=== PATIENT | male | born 1950 | race Caucasian/White ===

== ENCOUNTER 2018-04-02 17:22 | Emergency (ER) | payer OTHER, MEDICARE ==
[2018-04-02 18:39] LABS: PLATELET COUNT 275 10^3/uL (150-400)
--- NOTE | 2018-04-02 19:15 | EDPHY ---
H & P Stated Complaint: Gen abd pain "moves around" w/ extra flatulence worsening x 4wks Time Seen by Provider: 04/02/18 18:20 HPI/ROS: CHIEF COMPLAINT: Abdominal pain HISTORY OF PRESENT ILLNESS: 68-year-old male presents with abdominal pain. s/ p GIST operative removal (epigastrium) 2010. Intermittent abdominal pain over the last several months. 2 day history of increased abdominal pain. The pain is cramping, mainly on the left side. Currently has left upper quadrant pain, 3 /10. Alleviated with Tylenol. No associated symptoms and no fever. No aggravating factors. Concern for recurrent tumor. REVIEW OF SYSTEMS: complete 10 point ROS reviewed and is negative except for the noted elements in the HPI - Personal History Current Tetanus/Diphtheria Vaccine: No Current Tetanus Diphtheria and Acellular Pertussis (TDAP): No - Medical/Surgical History Hx Asthma: No Hx Chronic Respiratory Disease: No Hx Diabetes: No Hx Cardiac Disease: No Hx Renal Disease: No Hx Cirrhosis: No Hx Alcoholism: No Hx HIV/AIDS: No Hx Splenectomy or Spleen Trauma: No Other PMH: 2004 prostate removal. 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 2-12 small benign colon mesentary mass - Social History Smoking Status: Never smoked Alcohol Use: Sober Drug Use: None Additional Social History: - Physical Exam Exam: General Appearance: Alert, pleasant Eyes: Pupils equal and round, no conjunctival pallor ENT, Mouth: Mucous membranes moist Neck: Normal inspection Respiratory: Lungs are clear to auscultation Cardiovascular: Regular rate and rhythm Gastrointestinal: Abdomen is soft, mild left-sided tenderness, palpable mass LUQ extending to epigastrium Neurological: A&O, nonfocal, normal gait Skin: Warm and dry, no rash Extremities: Nontender, no pedal edema Psychiatric: Mood and affect normal Constitutional: Initial Vital Signs Temperature (C) 36.5 C 04/02/18 17:26 Heart Rate 72 04/02/18 17:26 Respiratory Rate 16 04/02/18 17:26 Blood Pressure 135/70 H 04/02/18 17:26 O2 Sat (%) 98 04/02/18 17:26 O2 Delivery Mode Room Air Allergies/Adverse Reactions: No Known Allergies Allergy (Verified 04/04/18 14:21) Home Medications: Medication Instructions Recorded Herbals/Supplements -Info Only 1 cap PO AD 04/04/18 Cholecalciferol Vit D3 [Vitamin D3 2,000 units PO DAILY 04/05/18 (*)] Hampton-3 Fatty Acids [Fish Oil 1000 1,000 mg PO DAILY 04/05/18 mg (*)] Vitamin B Complex [Vitamin B 1 each PO DAILY 04/05/18 Complex (OTC)] Medical Decision Making - Diagnostics Imaging Results: CT reveals a large complex mass in the epigastrium, concerning for recurrent GIST tumor Imaging: Discussed imaging studies w/ mail caller Radiologist, I viewed and interpreted images myself ED Course/Re-evaluation: This pt presents with a LUQ/epigastric mass. CT scan reveals a large tumor, most likely reucrrent GIST tumor. Results d/w pt and . Pt has mild pain, controlled with Tylenol. Declines admission. Pt referred to general surgeon and oncologist for biopsy/further care. Differential Diagnosis: includes though not limited to pancreatitis, PUD, cholecystitis, SBO, bowel perf - Data Points Laboratory Results: Laboratory Results 04/02/18 18:25 04/02/18 18:25 Point of Care Test Results: Chemistry 04/02/18 18:31 POC Sodium 144 mEq/L mEq/L (135-145) POC Potassium 4.0 mEq/L mEq/L (3.3-5.0) POC Chloride 107 mEq/L mEq/L (97-110) POC BUN 18 mg/dL mg/dL (7-23) POC Creatinine 1.2 mg/dL mg/dL (0.7-1.3) POC Glucose 80 mg/dL mg/dL (70-100) ISTAT H&H 04/02/18 18:31 POC Hgb 15.6 gm/dL gm/dL (13.7-17.5) POC Hct 46 % % (40-51) Departure - Departure Disposition: Home, Routine, Self-Care Clinical Impression: Abdominal pain Qualifiers: Abdominal location: epigastric Qualified Code(s): R10.13 - Epigastric pain Abdominal mass Qualifiers: Abdominal location: epigastric Qualified Code(s): R19.06 - Epigastric swelling , mass or lump Condition: Good Instructions: Acute Abdominal Pain (ED) Additional Instructions: Your CT scan reveals a recurrent abdominal tumor measuring 13 x 12 x 10 cm. You will need to have a biopsy of this tumor. I suggest that you follow-up with Dr. Dias in the office. Referrals: Gibran Dias MD [Medical Doctor] - As per Instructions (Call to make an appointment.)
[2018-04-02] MEDS ORDERED: IOPAMIDOL (ISOVUE 370) 100 ML BTL IV ONE (19:17)
[2018-04-02 21:28] VITALS: BP 150/92
== END 2018-04-02 21:28 | disposition home or self-care (01) ==
DX: R10.13 Epigastric pain (principal); R19.06 Epigastric swelling, mass or lump
CPT/HCPCS: 74177; 99285; Q9967; 82435-PO; 82565-PO; 82947-PO; 84132-PO; 84295-PO; 84520-PO; 85014-ER

== ENCOUNTER 2018-04-04 13:37 | Inpatient (IN) | payer OTHER, MEDICARE ==
[2018-04-04] MEDS ORDERED: cefOXitin SODIUM 2 GM in NS 100 ML IV ONE (13:46)
[2018-04-04] MEDS ORDERED: LIDOCAINE 1% 2 ML INJ ONE (14:07)
[2018-04-04] MEDS ORDERED: BUPIVACAINE 0.5% 30 ML SDV ONE (14:10)
--- NOTE | 2018-04-04 14:12 | PDANEPAE ---
ANE History of Present Illness exp lap ANE Past Medical History - Cardiovascular History Hx Hypertension: No Hx Arrhythmias: No Hx Chest Pain: No Hx Coronary Artery / Peripheral Vascular Disease: No Hx CHF / Valvular Disease: No Hx Palpitations: No - Pulmonary History Hx COPD: No Hx Asthma/Reactive Airway Disease: No Hx Recent Upper Respiratory Infection: No Hx Oxygen in Use at Home: No Hx Sleep Apnea: No - Neurologic History Hx Cerebrovascular Accident: No Hx Seizures: No Hx Dementia: No - Endocrine History Hx Diabetes: No Hypothyroid: No Hyperthyroid: No Obesity: no - Renal History Hx Renal Disorders: No - Liver History Hx Hepatic Disorders: No - Neurological & Psychiatric Hx Hx Neurological and Psychiatric Disorders: No - GI History GERD: mild Gastrointestinal History Comment: GIST ANE Review of Systems Review of Systems: - Exercise capacity Exercise capacity: >=4 METS ANE Patient History - Allergies Allergies/Adverse Reactions: No Known Allergies Allergy (Verified 04/04/18 14:21) - Home Medications Home medications: home medication list seen and reviewed Home Medications: Herbals/Supplements -Info Only 04/04/18 [Last Taken 04/03/18] Multivitamin 04/04/18 [Last Taken 04/03/18] - NPO status NPO Status: no food or drink >8 hours - Anes Hx Anes Hx: no prior problems - Smoking Hx Smoking Status: Never smoked ANE Physical Exam - Airway Mallampati Score: Class 2 Mouth exam: normal dental/mouth exam - Pulmonary Pulmonary: no respiratory distress - Cardiovascular Cardiovascular: regular rate and rhythym - ASA Status ASA Status: II ANE Anesthesia Plan Anesthesia Plan: general endotracheal anesthesia, epidural
[2018-04-04] MEDS ORDERED: DEXAMETHASONE 4 MG/ML VIAL ONE (14:19)
[2018-04-04] MEDS ORDERED: ONDANSETRON 4 MG/2 ML VIAL ONE (14:19)
[2018-04-04] MEDS ORDERED: KETOROLAC 30 MG/1 ML SDV ONE (14:19)
[2018-04-04] MEDS ORDERED: PROPOFOL 200 MG/20 ML VIAL ONE (14:19)
[2018-04-04] MEDS ORDERED: fentaNYL 100 MCG/2 ML INJ ONE ×3 (14:19→18:56)
[2018-04-04] MEDS ORDERED: LIDOCAINE 2% 5 ML SDV ONE ×4 (14:19→19:36)
[2018-04-04] MEDS ORDERED: ROCURONIUM 100 MG/10 ML VIAL ONE (14:19)
[2018-04-04 14:36] LABS: INR 1.07 (0.83-1.16); PROTIME(PATIENT) 14.1 SEC (12.0-15.0)
--- NOTE | 2018-04-04 14:38 | PDHPUP ---
History & Physical Update H&P update statement: This history and physical update is based on an assessment of the patient which was completed after admission or registration (within 24 hours), but prior to the surgery/procedure. H&P update: H&P reviewed & patient examined, no change in patient's condition since H&P completed
[2018-04-04] MEDS ORDERED: MIDAZOLAM 2 MG/2 ML VIAL IVP ONE (14:43)
[2018-04-04] MEDS ORDERED: ALBUMIN 5% 250 ML BOTTLE IV ONE ×4 (15:38→17:33)
[2018-04-04] MEDS ORDERED: PHENYLEPHRINE HCL 100 MCG/ML SYR ONE (15:42)
[2018-04-04] MEDS ORDERED: ONDANSETRON 4 MG/2 ML VIAL IVP PRN ×2 (17:15→18:44)
[2018-04-04] MEDS ORDERED: NALOXONE HCL 0.4 MG/ML INJ IVP PRN ×2 (17:30→18:44)
[2018-04-04] MEDS ORDERED: HYDROmorphONE/DILAUDID 1 MG/ML INJ IVP PRN (18:13)
[2018-04-04] MEDS ORDERED: fentaNYL 100 MCG/2 ML INJ IVP PRN (18:44)
[2018-04-04] MEDS ORDERED: PHENYLEPHRINE HCL 100 MCG/ML SYR IVP PRN (18:44)
[2018-04-04] MEDS ORDERED: PROMETHAZINE HCL 25 MG/ML INJ IVP PRN (18:44)
[2018-04-04] MEDS ORDERED: ALBUTEROL 3 ML DEYVIAL IH PRN (18:44)
--- NOTE | 2018-04-04 18:44 | POSTANESTH ---
Post Anesthetic Evaluation Cardiovascular Status: Normal, Stable Respiratory Status: Normal, Stable Level of Consciousness/Mental Status: Can Participate in Eval Pain Control: Adequate, Prn Tx Ordered Nausea/Vomiting Control: Adequate, Prn Tx Ordered Complications Possibly Related to Anesthesia: None Noted
--- NOTE | 2018-04-04 19:58 | POSTOPPROG ---
Post Op Note Date of Operation: 04/04/18 Surgeon: Gibran Dias Hand Tufter: ELLI Anesthesiologist: SARAH Anesthesia: GET(General Endotracheal) Pre-op Diagnosis: GIANT ABDOMINAL MASS Post-op Diagnosis: GIANT RECURRENT GIST TUMOR Indication: SEVERE PAIN, WEIGHT LOSS, INABILITY TO EAT Procedure: LAPAROTOMY WITH SUBTOTAL GASTRECTOMY AND RESECTION OF A GIANT RECURRENT GIS Findings: 15 CM GIST TUMOR INVADING THE LIVER AND THE BACK WALL OF THE STOMACH AND AD Inf/Abcess present in the surg proc area at time of surgery?: No Depth: Organ Space EBL: 500-1000 Complications: NONE Drains: Geovanni Garber Specimen(s): STOMACH, LEFT LOBE OF THE LIVER, GIST TUMOR
--- NOTE | 2018-04-04 20:04 | SOAPPROG ---
SANDRA Progress Note Assessment/Plan: Assessment: 68-YEAR-OLD MALE WITH A GIANT 15 CM MID EPIGASTRIC TUMOR CAUSING HIM CONSIDERABLE PAIN, WEIGHT LOSS AND INABILITY TO EAT. HE HAS PAST HISTORY OF A GIST TUMOR RESECTION WAS STOMACH AND A 2ND OPERATION FOR RECURRENT GIST HE PRESENTS NOW FOR LAPAROTOMY. RISKS AND OPTIONS BEEN FULLY DISCUSSED INCLUDING INABILITY TO RESECT TUMOR, TUMOR RECURRENCE, INJURY TO ADJACENT STRUCTURES, MAJOR HEMORRHAGE AND OTHERS WE HAVE DISCUSSED THE OPTION OF TRYING TO STRICT TUMOR WITH GLEEVEC BUT THAT MAY TAKE SEVERAL WEEKS AND HE IS IN CONSIDERABLE PAIN AND A ABILITY TO EAT AND WISHES TO PROCEED WITH SURGERY. HE KNOWS THIS MAY REQUIRE PARTIAL HEPATECTOMY AND SIGNIFICANT PORTION OF HIS STOMACH REMOVED. WE ARE UNSURE ABOUT PANCREATIC INVOLVEMENT Plan: LAPAROTOMY WITH RESECTION OF TUMOR 04/04/18 20:01 Objective: Vital Signs Temp Pulse Resp BP Pulse Ox 37.0 C 57 L 14 115/54 L 100 04/04/18 19:40 04/04/18 14:25 04/04/18 19:55 04/04/18 19:55 04/04/18 19:55 Laboratory Results 04/04/18 18:14 04/03/18 04/04/18 04/05/18 05:59 05:59 05:59 Intake Total 1300 Output Total 1700 Balance -400 PT 14.1 SEC (12.0-15.0) 04/04/18 13:47 INR 1.07 (0.83-1.16) 04/04/18 13:47 ICD10 Worksheet Patient Problems: Problems Problem Status Onset Abdominal mass Acute - ICD10 Problem Qualifiers (1) Abdominal mass
[2018-04-04] MEDS: D5W 1/2 NS W/ 20 KCl/L 1,000 ML IV SCH (21:03)
[2018-04-04] MEDS: cefOXitin SODIUM 1 GM in NS 50 ML IV SCH (21:03)
[2018-04-04] MEDS: PANTOPRAZOLE SODIUM 40 MG VIAL IVP SCH (22:37)
[2018-04-05] MEDS: HYDROmorph 10MCG/ML&BUP 0.1% in 100ML NS EP SCH ×3 (00:54→17:54)
[2018-04-05] MEDS: cefOXitin SODIUM 1 GM in NS 50 ML IV SCH ×4 (04:44→21:35)
[2018-04-05 05:03] LABS: PLATELET COUNT 168 10^3/uL (150-400)
[2018-04-05] MEDS: D5W 1/2 NS W/ 20 KCl/L 1,000 ML IV SCH ×2 (05:11→13:47)
[2018-04-05] MEDS: REGARDING ANTICOAG MISC SCH (07:36)
[2018-04-05] MEDS: DC NARCS MISC SCH (07:36)
--- NOTE | 2018-04-05 09:10 | SOAPPROG ---
SOAP Progress Note Assessment/Plan: Assessment/plan: 68 y/o M s/p laparotomy for GIST tumor resection, partial gastrectomy and liver biopsy POD #1 ABLA. Hct 22 today. Transfuse 2uprbc Neuro: epidural for pain control Continue Ng tube to suction. Continue ICU status. S: Doing well overall. Pain well controlled with epidural. Denies passing gas yet. O: Alert Afebrile VSS Ng tube to suction rrr ctab, no increased wob abdomen: soft, nontender, nondistended, rare BS, incision well dressed, JONATHAN with sersang drainage 04/05/18 09:04 Objective: Vital Signs Temp Pulse Resp BP Pulse Ox 36.7 C 70 17 120/54 L 100 04/05/18 08:00 04/05/18 08:00 04/05/18 08:00 04/05/18 08:00 04/05/18 08:00 Laboratory Results 04/05/18 04:23 04/05/18 04:23 04/04/18 04/05/18 04/06/18 05:59 05:59 05:59 Intake Total 2400 Output Total 2810 Balance -410 PT 14.1 SEC (12.0-15.0) 04/04/18 13:47 INR 1.07 (0.83-1.16) 04/04/18 13:47 ICD10 Worksheet Patient Problems: Problems Problem Status Onset Abdominal mass Acute
--- NOTE | 2018-04-05 10:26 | PDMN ---
Medical Necessity Medical necessity: [facility] – [place] S510 Partial Gastrectomy, 4-6 days: 68 yo s/p ex lap resection abd tumor w/ partial gastrectomy, [facility] IP only
[2018-04-05] MEDS: PANTOPRAZOLE SODIUM 40 MG VIAL IVP SCH ×2 (10:51→21:35)
[2018-04-05] MEDS ORDERED: KETOROLAC 15 MG/1 ML SDV IVP ONE (11:30)
--- NOTE | 2018-04-05 11:55 | PDPAINCON ---
Pain Management Consultation Patient referred by : Arun - Subjective Pain at rest (/10): 2 Pain with activity (/10): 4 (with coughing and sitting up) Pain is: under control Comments: Pt has not been out of bed yet. Scheduled to work with PT today per pt. - Objective Technique: continuous epidural Site: thoracic Continuous infusion: hydromorphone Continuous rate (ml/hr): 8 Bolus (ml): 6 (pt has used 5 boluses today) Lockout interval (mins): 15 Catheter site: clean, dry, intact, no erythema/edema/exudate Sensory and motor exam: dermatomal level (T5-T12) Vital signs: stable - Assessment/Plan Assessment/Plan: pain well-controlled, continue current mgmt
--- NOTE | 2018-04-05 12:51 | ASMTCASEMG ---
Living Arrangements What is your living Answers: With Spouse arrangement? Who do you live with? Type Of Residence What kind of residence do Answers: House you live in? Discharge Plan Comments Coordination Status Comments Notes: Patient is a 68yo male who comes to [facility] for surgical intervention, specifically, laparotomy exploratory resection abdominal tumor and a possible gastrectomy. PT has been ordered for the patient. D/C plan TBD. CM will follow. Date Signed: 04/05/2018 12:51 PM Electronically Signed By:Tenisha Monterroso LCSW
--- NOTE | 2018-04-05 18:24 | GCON ---
CRITICAL CARE CONSULT. DATE OF CONSULTATION: 04/05/2018 HISTORY OF PRESENT ILLNESS: This patient is a 68-year-old male with a history of a gastrointestinal stromal tumor that was previously resected along with partial hepatectomy who presents with increasin g abdominal pain and was known to have ongoing tumor. He was admitted yesterday by Dr. Dias for res ection which he tolerated reasonably well. Today, says his pain is reasonably well controlled and eason s had no nausea, vomiting, but he is using an epidural for anesthetic purposes. REVIEW OF SYSTEMS: Otherwise negative. PAST MEDICAL HISTORY: Includes the tumor as described above. PAST SURGICAL HISTORY: Includes multiple previous resections. SOCIAL HISTORY: He is a nonsmoker. No alcohol or IV drug use. FAMILY HISTORY: Noncontributory. CURRENT MEDICATIONS: Include cefoxitin, a Dilaudid/bupivacaine epidural anesthesia, and Protonix wit h D5W and half-normal saline. PHYSICAL EXAM: VITAL SIGNS: He was afebrile. His blood pressure was 110/58, heart rate 71, respira tions 20, oxygen saturation 100% on 1 L. GENERAL: He was awake, alert, in no apparent distress. Ab le to speak in full sentences without using accessory muscles for breathing. HEENT: Pupils equally round and reactive to light. Nonicteric and noninjected. Mucous membranes are moist without erythem a or exudate. NECK: Supple without adenopathy or jugular vein distention. Breath sounds were clear to auscultation bilaterally without wheeze, rubs, rales. HEART: Regular rate and rhythm without mu rmurs, rubs, or gallops. ABDOMEN: Mildly tender but nondistended with hypoactive bowel tones. EXTR EMITIES: No clubbing, cyanosis, or edema. NEUROLOGIC: Nonfocal including cranial nerves, deep tend on reflexes. SKIN: Warm, dry, without evidence of rash. OBJECTIVE DATA: Includes a white count of 14.4, hematocrit was 22 with a hemoglobin 7.5. His basic metabolic panel was unremarkable. AST was 245, ALT 210. ASSESSMENT AND PLAN: 1. Recent surgery which he seemed to be doing fairly well at least from a hemodynamic perspective. Advancement of diet would be, of course, deferred to Dr. Dias but not likely today given the lack of bowel tones. 2. Anemia. This is likely dilutional in nature. I do not believe he is having ongoing bleeding. H e did get transfused, and we will continue to follow that. 3. Transaminitis, likely related to his surgery as well. The should come down on their whether or n ot; there is no specific therapy necessary at this time. /[id number]/MODL
[2018-04-06] MEDS: HYDROmorph 10MCG/ML&BUP 0.1% in 100ML NS EP SCH ×2 (02:22→09:19)
[2018-04-06] MEDS: D5W 1/2 NS W/ 20 KCl/L 1,000 ML IV SCH (05:55)
[2018-04-06 07:22] LABS: PLATELET COUNT 141 10^3/uL (150-400)
[2018-04-06] MEDS: REGARDING ANTICOAG MISC SCH (08:48)
[2018-04-06] MEDS: PANTOPRAZOLE SODIUM 40 MG VIAL IVP SCH ×2 (08:48→21:14)
[2018-04-06] MEDS: DC NARCS MISC SCH (08:48)
--- NOTE | 2018-04-06 10:32 | SOAPPROG ---
SOAP Progress Note Assessment/Plan: Assessment: 68 y/o M s/p laparotomy for GIST tumor resection, partial gastrectomy and liver biopsy Doing better than expected. Large amount of stomach dissected and will rely on short gastrics to perfuse stomach. Will need to monitor vital signs because epidural could mask pain. Acute anemia blood loss - responded appropriately to transfusion yesterday Plan: Elevated WBC, recheck labs tomorrow. NG out tomorrow if continued low output. Patient doing well, plan to transfer from ICU to floor. Continue regular ambulation. Subjective: Feeling well, epidural adequately controlling pain. Low output from NG tube. Ambulating without difficulty. Objective: General: Pleasant, well-nourished man lying upright in bed, no acute distress HENT: Normocephalic, no gross hearing deficits, mucous membranes moist, pupils equal and round Lungs: Clear to auscultation bilaterally, No increased work of breathing Cardiac: Regular rate, no peripheral edema Abdomen: Positive bowel sounds. Abdomen soft, non-distended, nontender to palpation. Incisions clean, dry, intact. JONATHAN drain with dark serosanguinous fluid Skin: Warm and dry. Neuro: Grossly intact 04/06/18 10:25 04/06/18 10:37 Objective: Vital Signs Temp Pulse Resp BP Pulse Ox 37.1 C 95 19 125/57 H 95 04/06/18 07:57 04/06/18 07:57 04/06/18 07:57 04/06/18 07:57 04/06/18 07:57 Laboratory Results 04/06/18 06:45 04/06/18 08:40 04/05/18 04/06/18 04/07/18 05:59 05:59 05:59 Intake Total 2400 3747 Output Total 2810 1490 Balance -410 2257 PT 14.1 SEC (12.0-15.0) 04/04/18 13:47 INR 1.07 (0.83-1.16) 04/04/18 13:47 ICD10 Worksheet Patient Problems: Problems Problem Status Onset Abdominal mass Acute
--- NOTE | 2018-04-06 12:33 | GOP ---
DATE OF OPERATION: 04/04/2018 SURGEON: Gibran Dias MD SCREEN AND CYCLONE REPAIRER: Dr. Saxena ANESTHESIOLOGIST: Mannie Hernandez MD PREOPERATIVE DIAGNOSIS: Probable recurrent GIST epigastric tumor. POSTOPERATIVE DIAGNOSIS: Recurrent gastrointestinal stromal tumor. PROCEDURE PERFORMED: Laparotomy with resection of GIST abdominal tumor with subtotal gastrectomy and left partial hepatic lobectomy. FINDINGS: The patient was found to have a 15 cm GIST tumor with necrotic center. It was firmly adherent to the back wall of the stomach, as well as going into the left lateral segment of the liver. It was able to be freed from the pancreas without invasion of the pancreas and the short gastrics were left in place. There were marked adhesions in the abdomen obscuring visibility. ESTIMATED BLOOD LOSS: Approximately 1000 cc. DESCRIPTION OF PROCEDURE: The patient was taken to the operating room where he received satisfactory general endotracheal anesthesia by Dr. Hernandez. He was placed in the supine position, prepped and draped in the usual sterile fashion. A long midline abdominal incision was made and carried through the linea alba. The abdomen entered. Adhesions were carefully taken down with the Harmonic Scalpel, exposing the liver. The left lateral segment was mobilized. The large tumor was palpable. It was freed up from the abdominal adhesions and exposed. It was completely involving the lower 2/3 of the stomach. Tedious dissection ensued with a significant amount of oozing and steady blood loss. Hemostasis was obtained with hemoclips and the Harmonic Scalpel. The mass was freed up off the pancreas and was then more mobile. The left lobe of the liver was then mobilized. It was isolated with care to avoid injury to the common bile duct and the gallbladder. These were traced and exposed repeatedly. The left lobe lateral segment was then divided with an Endo-KAREN stapler until the liver and tumor were freely detached. At that point, the mass was far more mobile. The upper portion of the stomach was preserved. Cross application of the Endo-KAREN stapler and approximately 1/3 of the stomach was left intact with blood supply to the short gastrics. This was divided with the Endo-KAREN stapler distally. The pylorus was identified. It too was then freed up and divided with a KAREN stapler and eventually the entire mass, including stomach and the left lateral segment of the liver could be removed and sent to Pathology. Hemostasis was carefully obtained. The gastric remnant was mobilized. The duodenal stump was mobilized with a Marion maneuver and an end-to-end Billroth I anastomosis was then done in a 2-layer fashion using 3-0 silks for the anterior and posterior layers and a running inner layer of 3-0 Vicryl, creating a 2 fingerbreadth anastomosis. NG tube was passed through the anastomosis into the duodenum. Bile was seen coming back from the duodenum and the bile duct was clearly preserved and uninvolved. The gastric remnant appeared to be somewhat ischemic as the blood supply was primarily from the short gastric vessels. The left gastric vessel was still open and pulsatile, but the vessels of the lesser curvature were essentially all sacrificed being involved with the tumor. The stomach suture line was covered with omental patch and secured in place with 3-0 silk sutures and the cut edge of the liver was also covered with an omental patch and sutured in place with 2-0 silk sutures. Wound was irrigated, hemostasis was assured. A 19-Chinese JNOATHAN drain was brought out through a separate stab incision, secured to the skin with silk sutures. It was placed along the liver edge over the stomach anastomosis. Abdomen was then closed using a running #1 PDS suture for the linea alba, reinforced periodically with #1 Vicryl interrupted sutures. The skin was closed with skin kvng. He tolerated the procedure well. Blood loss was approximately 1000 cc COMPLICATIONS: None. /[id number]/MODL MTDD
--- NOTE | 2018-04-06 14:07 | PDPAINCON ---
Pain Management Consultation Patient referred by : Arun - Subjective Pain at rest (/10): 0 Pain with activity (/10): 2 Pain is: low, well controlled Activity: able to ambulate, out of bed with assistance, participating in PT - Objective Vital signs: stable - Assessment/Plan Assessment/Plan: other (Pain well controlled after turning off epidural for ~ 4hrs, so Epidural was removed. Tip Intact)
[2018-04-06] MEDS ORDERED: ONDANSETRON DISINTEGRATING 4 MG TAB PO PRN (14:32)
[2018-04-06] MEDS ORDERED: ONDANSETRON 4 MG/2 ML VIAL IVP PRN (14:32)
--- NOTE | 2018-04-06 15:15 | ASMTCMCOM ---
CM Note CM Note Notes: 04/06/2018 Case Management Note Discussed pt during rounds this morning. Reviewed chart. NG tube is in place. Pt has cleared pt for return home without services. Pt has family support. Anticipating independent with follow up as directed. Case Management d/c poc: to be determined. Case Management to follow. Date Signed: 04/06/2018 03:15 PM Electronically Signed By:Alivia Cartagena RN
[2018-04-07] MEDS: D5W 1/2 NS W/ 20 KCl/L 1,000 ML IV SCH ×2 (07:05→15:17)
[2018-04-07] MEDS: ACETAMINOPHEN 650 MG/20.3 ML UDCUP PO PRN ×2 (08:53→15:58)
[2018-04-07] MEDS: PANTOPRAZOLE SODIUM 40 MG VIAL IVP SCH ×2 (08:58→21:11)
[2018-04-07] MEDS: DC NARCS MISC SCH (09:00)
[2018-04-07] MEDS: REGARDING ANTICOAG MISC SCH (09:00)
[2018-04-07 09:22] LABS: PLATELET COUNT 147 10^3/uL (150-400)
--- NOTE | 2018-04-07 12:01 | SOAPPROG ---
SOAP Progress Note Assessment/Plan: Assessment: 68 y/o M s/p laparotomy for GIST tumor resection, partial gastrectomy and liver biopsy Large amount of stomach dissected and will rely on short gastrics to perfuse stomach. 600cc total output from NG tube since surgery. H&H stable Plan: Tylenol for headache through NG Monitor NG output today, will remove if output remains low. Discussed NPO except ice chips for additional day following removal of NG. Decrease IVF Elevated WBC, recheck labs tomorrow. NG out tomorrow if continued low output. Patient doing well, plan to transfer from ICU to floor. Continue regular ambulation. Subjective: Patient complaining of headache, otherwise comfortable without epidural. Increased output from NG tube, 400cc yesterday and 100cc overnight. No flatus, but belching. Hypotension yesterday that resolved after removal of epidural Objective: General: Pleasant, well-nourished man lying upright in bed, no acute distress HENT: Normocephalic, no gross hearing deficits, mucous membranes moist, pupils equal and round Lungs: Clear to auscultation bilaterally, No increased work of breathing Cardiac: Regular rate, no peripheral edema Abdomen: Bowel sounds. Abdomen soft, non-distended. Incisions clean, dry, intact. JONATHAN continuing to drain dark serosanguinous fluid Skin: Warm and dry. Neuro: Grossly intact 04/06/18 10:25 04/06/18 10:37 04/07/18 11:54 04/07/18 12:30 04/07/18 12:32 Objective: Vital Signs Temp Pulse Resp BP Pulse Ox 36.8 C 82 20 134/66 H 97 04/07/18 08:00 04/07/18 08:00 04/07/18 08:00 04/07/18 08:00 04/07/18 08:00 Laboratory Results 04/07/18 09:10 04/07/18 07:15 04/06/18 04/07/18 04/08/18 05:59 05:59 05:59 Intake Total 3747 2955 Output Total 1490 1920 Balance 2257 1035 PT 14.1 SEC (12.0-15.0) 04/04/18 13:47 INR 1.07 (0.83-1.16) 04/04/18 13:47 ICD10 Worksheet Patient Problems: Problems Problem Status Onset Abdominal mass Acute
[2018-04-07] MEDS: HYDROmorphONE/DILAUDID 1 MG/ML INJ IVP PRN ×2 (17:02→21:17)
--- NOTE | 2018-04-07 17:23 | SOAPPROG ---
SOAP Progress Note Assessment/Plan: Assessment: Right sided headache. Unlikely to be a spinal headache mainly because there does not appear to be a postural component. I reviewed the OR notes and no complications were noted (i.e. CSF during epidural placement). Plan: At this time I don't recommend attempting a blood patch given the very low likelihood of this being a spinal headache. 04/07/18 17:21 Subjective: Patient complaining of R sided headache since Sunday Objective: R sided headache, increases and decreases in intensity throughout the day. There appears to be no postural component. I laid him flat briefly but the headache did not get any better. Vital Signs Temp Pulse Resp BP Pulse Ox 36.5 C 89 18 152/69 H 97 04/07/18 15:01 04/07/18 15:01 04/07/18 15:01 04/07/18 15:01 04/07/18 15:01 Laboratory Results 04/07/18 09:10 04/07/18 07:15 04/06/18 04/07/18 04/08/18 05:59 05:59 05:59 Intake Total 3747 2955 707 Output Total 1490 1920 450 Balance 2257 1035 257 PT 14.1 SEC (12.0-15.0) 04/04/18 13:47 INR 1.07 (0.83-1.16) 04/04/18 13:47 - Time Spent With Patient Time Spent With Patient: 15 minutes ICD10 Worksheet Patient Problems: Problems Problem Status Onset Abdominal mass Acute
[2018-04-08 05:42] LABS: PLATELET COUNT 183 10^3/uL (150-400)
[2018-04-08] MEDS: DC NARCS MISC SCH (07:58)
[2018-04-08] MEDS: REGARDING ANTICOAG MISC SCH (07:58)
[2018-04-08] MEDS: PANTOPRAZOLE SODIUM 40 MG VIAL IVP SCH ×2 (08:23→20:12)
--- NOTE | 2018-04-08 10:24 | SOAPPROG ---
SOAP Progress Note Assessment/Plan: Assessment/plan: 68 y/o M s/p laparotomy for GIST tumor resection, partial gastrectomy and liver biopsy POD #4 Very small stomach after subtotal gastrectomy. Will be at risk for pernicious anemia. Will likely need B12 injections as outpt. S: Doing well overall. Pain well controlled after epidural removal. Headache finally gone. Denies passing gas or BM. O: Alert Afebrile VSS Ng tube to suction with 100cc out overnight rrr ctab, no increased wob abdomen: soft, nontender, nondistended, rare BS, incision well dressed, JONATHAN with sersang drainage Plan: Clamp NG tube. If tolerates, will pull it later today. Will start clears tomorrow if he does ok. Discussed postop expectations. Given pt's small stomach, his appetite will be suppressed and it will be difficult to take in enough calories. Nutrition to continue seeing him. Will need adequate protein intake. 04/08/18 10:17 Objective: Vital Signs Temp Pulse Resp BP Pulse Ox 36.6 C 82 16 137/78 H 94 04/08/18 07:18 04/08/18 07:18 04/08/18 07:18 04/08/18 07:18 04/08/18 07:18 Laboratory Results 04/08/18 05:15 04/08/18 05:15 04/07/18 04/08/18 04/09/18 05:59 05:59 05:59 Intake Total 2955 707 Output Total 1920 760 Balance 1035 -53 PT 14.1 SEC (12.0-15.0) 04/04/18 13:47 INR 1.07 (0.83-1.16) 04/04/18 13:47 ICD10 Worksheet Patient Problems: Problems Problem Status Onset Abdominal pain Acute
[2018-04-08] MEDS: ACETAMINOPHEN 650 MG/20.3 ML UDCUP PO PRN (17:31)
[2018-04-09] MEDS: ACETAMINOPHEN 650 MG/20.3 ML UDCUP PO PRN (02:48)
[2018-04-09] MEDS: D5W 1/2 NS W/ 20 KCl/L 1,000 ML IV SCH ×2 (07:01→18:44)
[2018-04-09] MEDS: PANTOPRAZOLE SODIUM 40 MG VIAL IVP SCH ×2 (08:37→20:10)
[2018-04-09] MEDS ORDERED: morphINE 10 MG/0.5 ML UDSYR PO PRN (09:04)
--- NOTE | 2018-04-09 10:17 | SOAPPROG ---
SOAP Progress Note Assessment/Plan: Assessment/Plan: 68 y/o M s/p laparotomy for GIST tumor resection, partial gastrectomy and liver biopsy POD #5 NG removed yesterday. Start clears today. Go slow--small volumes. Very small stomach after subtotal gastrectomy. Will be at risk for pernicious anemia. Will likely need B12 injections as outpt. Nutrition following. RODRIGUEZ. Observe with adding clears and black coffee. Anesthesia visited patient over weekend to eval for spinal RODRIGUEZ. On PPI. Adding liquid PO narcotic PRN. Avoid toradol given gastrectomy. VTE ppx c lovenox tomorrow. Held 2/2 UGIB and surgery. Seen with Dr. Rouse. Doing well overall. Dispo pending. Patient highly motivated to get better. S: no n/v. pain controlled. still has RODRIGUEZ. O: Alert mmm rrr ctab, no increased wob abdomen: soft, nontender, nondistended, +BS, 04/09/18 10:17 Objective: Vital Signs Temp Pulse Resp BP Pulse Ox 36.6 C 70 16 147/71 H 96 04/09/18 07:46 04/09/18 07:46 04/09/18 07:46 04/09/18 07:46 04/09/18 07:46 Laboratory Results 04/08/18 05:15 04/08/18 05:15 04/08/18 04/09/18 04/10/18 05:59 05:59 05:59 Intake Total 707 2949 Output Total 760 1700 300 Balance -53 1249 -300 PT 14.1 SEC (12.0-15.0) 04/04/18 13:47 INR 1.07 (0.83-1.16) 04/04/18 13:47 ICD10 Worksheet Patient Problems: Problems Problem Status Onset Abdominal pain Acute
--- NOTE | 2018-04-09 16:02 | ASMTCMCOM ---
CM Note CM Note Notes: CM met w/ pt for dispo planning. PT is recommending HC. Pt is agreeable to HC services but reports that he does not have a PCP. Pt would like to revisit conversation when his is present. CM to follow. Date Signed: 04/09/2018 04:02 PM Electronically Signed By:SHYANN Kumar
[2018-04-09] MEDS: HYDROCOD/APAP 7.5/325 IN 15ML UDCUP PO PRN (18:39)
--- NOTE | 2018-04-10 08:54 | SOAPPROG ---
SOAP Progress Note Assessment/Plan: Assessment/Plan: 68 y/o M s/p laparotomy for GIST tumor resection, partial gastrectomy and liver biopsy POD #6 Diarrhea. Each time he had clears. Possible dumping syndrome. Will monitor with a full liquid diet. Consider imodium if persists. RODRIGUEZ. Resolved after lack coffee. Likely caffeine related. Not spinal RODRIGUEZ. On PPI. Adding liquid PO narcotic PRN. Avoid toradol given gastrectomy. VTE ppx c lovenox. Drain. Low output but continue until starts to eat for for diagnostic purposes. Pathology. GIST. Recurrent diagnosis. Patient reports being on gleevac for 4-5 years in past. Discussed outpatient oncology consult. Patient would prefer to see someone this hospital stay. Will consult them today. Discussed with Dr. Glynn. Doing well overall. Dispo pending. Patient highly motivated to get better. S: going slowly with clears--small but frequent volumes. + diarrhea as described above. no n/v. pain controlled. O: Alert mmm rrr ctab, no increased wob abdomen: soft, nontender, nondistended, +BS, 04/10/18 09:07 Objective: Vital Signs Temp Pulse Resp BP Pulse Ox 36.8 C 71 18 128/77 H 93 04/10/18 07:32 04/10/18 07:32 04/10/18 07:32 04/10/18 07:32 04/10/18 07:32 Laboratory Results 04/08/18 05:15 04/10/18 05:30 04/09/18 04/10/18 04/11/18 05:59 05:59 05:59 Intake Total 2949 2007 Output Total 1700 1005 Balance 1249 1003 PT 14.1 SEC (12.0-15.0) 04/04/18 13:47 INR 1.07 (0.83-1.16) 04/04/18 13:47 ICD10 Worksheet Patient Problems: Problems Problem Status Onset Abdominal pain Acute
[2018-04-10] MEDS: PANTOPRAZOLE SODIUM 40 MG VIAL IVP SCH ×2 (09:05→20:33)
[2018-04-10] MEDS: ENOXAPARIN 40 MG/0.4 ML SYR SC SCH (09:05)
[2018-04-10] MEDS: D5W 1/2 NS W/ 20 KCl/L 1,000 ML IV SCH (10:58)
--- NOTE | 2018-04-10 14:00 | ASMTCMCOM ---
CM Note CM Note Notes: CM spoke to pts Angie on the phone. Angie would like an appointment with either Malachi Connelly or Damion Irving. CM was able to obtain an appointment w/ Malachi Connelly (see appointment below). Referral sent to [facility]. [facility] is able to accept. CM to follow. Plan: [facility]; RN Appointment for a new primary care doctor: Malachi Connelly MD [id number] [facility], [facility] [address] [facility] P#: [phone] 04/15/18 at 10:40AM Bring photo ID, med list, discharge summary from the hospital, insurance card and copay Date Signed: 04/10/2018 02:00 PM Electronically Signed By:SHYANN Kumar
--- NOTE | 2018-04-10 14:22 | GCON ---
INPATIENT ONCOLOGY CONSULTATION DATE OF CONSULTATION: 04/10/2018 REFERRING PHYSICIAN: Gibran Dias MD REASON FOR CONSULTATION: Recurrent gastrointestinal stromal tumor. HISTORY OF PRESENT ILLNESS: The patient is a 68-year-old man with recurrent GI stromal tumor. He was initially diagnosed in 2009, when he presented with a lower GI bleed. He was found to have a large tumor at the pylorus and underwent partial gastrectomy. He was then started on Gleevec, which he continued for about 3 years, ending in 2013. This past August, he began to develop some intermittent abdominal pain which became worse. He ultimately sought medical attention. A CT scan showed a 13 x 12 x 10 cm tumor along the lesser curvature of the stomach abutting the left hepatic lobe with nodular enhancement. No other lesions were seen. He was taken to the operating room. Pathology revealed a gastrointestinal stromal tumor measuring 15 cm. The mitotic rate was greater than 5 cubic mm. Ki-67 was 2%. The tumor involved the margins of the capsular and peripheral margins of resection. Kit CD 117 and CD34 were positive. He is recovering well from the surgery and is beginning to eat a full liquid diet. PAST MEDICAL HISTORY: Also notable for prostate cancer in 2004, treated with radical prostatectomy. He states that his PSA has been rising and that his urologist in [place] where he used to live has recommended radiation therapy. CURRENT MEDICATIONS: Lovenox, Dilaudid, Zofran, Protonix. ALLERGIES: No known drug allergies. FAMILY HISTORY: The father of lung cancer. SOCIAL HISTORY: He quit smoking in 1976. He drinks alcohol occasionally. He works as a consult, lives with his . REVIEW OF SYSTEMS: Other than pertinent positives in the HPI, a 14-point review of systems is negative. EXAMINATION: VITAL SIGNS: Temperature is 36.6, blood pressure 130/80, heart rate 84, oxygen saturation 95% on room air. GENERAL: He was in no acute distress. HEENT: Sclerae anicteric. Oropharynx clear. NECK: Supple without lymphadenopathy. LUNGS: Clear to auscultation bilaterally. CARDIAC EXAMINATION: Regular rate and rhythm. No murmurs, gallops, or rubs. ABDOMEN: Moderately distended with quiet bowel sounds. Midline incision was clean, dry , and intact. EXTREMITIES: No edema. SKIN: No petechiae or purpura. LABORATORY DATA: White count 15.12, hemoglobin 9, platelets of 183. Sodium 135 , potassium 3.7, chloride 111, bicarb 19, BUN 13, creatinine 0.8, total bilirubin 3.6, conjugated bilirubin 2.5, AST 77, ALT 122, albumin 2.4. IMPRESSION: This is a 68-year-old man with a history of recurrent gastrointestinal stromal tumor. The CT scan of the abdomen did not reveal other sites of disease, and it will be worthwhile to get a CT scan of the chest to ensure there are no other lung nodules. This was an R1 resection with positive margins, and I would recommend that the patient restart Gleevec after he has recovered from the surgery and continue with it indefinitely. I have asked the lab to add on molecular testing to ensure that he has a mutation that will render the remaining malignant cells susceptible to Gleevec. With respect to his prostate cancer, I will check a PSA while he is here. If it is indeed rising, he may need a bone scan and additional imaging for staging. Treatment in that setting could include salvage radiotherapy, observation alone, or anti-androgen therapy. I can discuss this with him further in the outpatient setting. Thank you for this consultation. It is a pleasure meeting the patient, and I will continue to follow with you closely while he is in the hospital and will assume responsibility for his oncologic care after discharge. /[id number]/MODL MTDD
[2018-04-10] MEDS ORDERED: IOPAMIDOL (ISOVUE 370) 100 ML BTL IV ONE (15:56)
[2018-04-11] MEDS: D5W 1/2 NS W/ 20 KCl/L 1,000 ML IV SCH (01:25)
[2018-04-11 05:54] LABS: PLATELET COUNT 300 10^3/uL (150-400)
[2018-04-11] MEDS: PANTOPRAZOLE SODIUM 40 MG VIAL IVP SCH ×2 (08:54→19:43)
[2018-04-11] MEDS: HYDROCOD/APAP 7.5/325 IN 15ML UDCUP PO PRN ×3 (08:54→19:41)
[2018-04-11] MEDS: ENOXAPARIN 40 MG/0.4 ML SYR SC SCH (08:54)
--- NOTE | 2018-04-11 10:17 | SOAPPROG ---
SOAP Progress Note Assessment/Plan: Assessment: 68 y/o M s/p laparotomy for GIST tumor resection, partial gastrectomy and liver biopsy Large amount of stomach dissected and will rely on short gastrics to perfuse stomach. Abdominal CT shows 1cm defect in stomach read as possible leak but drain with minimal output, belly is soft, patient is afebrile and is feeling well. R foot pain appears to be isolated more to ankle joint and more consistent with gouty attack than plantar fasciitis. Patient reports history of gout flare during previous hospitalization. Plan: Swallow study to rule out stomach perforation/leak - negative. light diet. POssible to dc tomorrow Subjective: Patient complaining of pain associated with R foot, has personal history of plantar fasciitis and gouty attacks of R ankle. Otherwise patient reports doing well. He tolerated regular diet of some beans and tomato soup last night. Objective: General: Pleasant, well-nourished man out of bed sitting comfortably in bedside chair, no acute distress HENT: Normocephalic, no gross hearing deficits, mucous membranes moist, pupils equal and round Lungs: Clear to auscultation bilaterally, No increased work of breathing Cardiac: Regular rate, no peripheral edema Abdomen: Bowel sounds. Abdomen soft, non-distended. Incisions clean, dry, intact. JONATHAN continuing to drain light serosanguinous fluid with minimal output. MSK: R medial malleolus significantly more swollen than left ankle. Site appears slightly more red but otherwise no signs of soft tissue infection. R medial ankle tender to palpation, pain elicited with forced dorsiflexion. Skin: Warm and dry. Neuro: Grossly intact 04/06/18 10:25 04/06/18 10:37 04/07/18 11:54 04/07/18 12:30 04/07/18 12:32 04/11/18 10:17 04/11/18 16:08 Objective: Vital Signs Temp Pulse Resp BP Pulse Ox 36.8 C 79 16 140/80 H 95 04/11/18 07:42 04/11/18 07:42 04/11/18 07:42 04/11/18 07:42 04/11/18 07:42 Laboratory Results 04/11/18 05:10 04/11/18 05:10 04/10/18 04/11/18 04/12/18 05:59 05:59 05:59 Intake Total 2007 900 Output Total 1005 325 Balance 1003 575 PT 14.1 SEC (12.0-15.0) 04/04/18 13:47 INR 1.07 (0.83-1.16) 04/04/18 13:47 ICD10 Worksheet Patient Problems: Problems Problem Status Onset Abdominal pain Acute
--- NOTE | 2018-04-11 10:19 | SOAPPROG ---
SOAP Progress Note Assessment/Plan: Assessment/plan: 68 y/o M s/p laparotomy for GIST tumor resection, partial gastrectomy and liver biopsy POD #7 Path: recurrent GIST. Oncology saw pt yesterday. Responded to Gleevac in the past, will likely need it indefinitely Elevated PSA. Appreciate onc input. May need bone scan for staging. Very small stomach after subtotal gastrectomy. Will be at risk for pernicious anemia. Will likely need B12 injections as outpt. Acute gout attack, bilateral medial malleoli. Will start colchicine PO after esophagram. No toradol or indocin given gastrectomy Possible defect in anterior stomach wall. Unlikely, given pt is doing so well clinically. NPO. Esophagram ordered for this am. VTE ppx: lovenox S: Doing well overall. Denies pain. Tolerated full liquid diet yesterday. Passing gas and having BMs. Less loose. O: Alert Afebrile VSS rrr ctab, no increased wob abdomen: soft, nontender, nondistended, normoactive BS, incision well dressed, JONATHAN with sersang drainage Objective: Vital Signs Temp Pulse Resp BP Pulse Ox 36.8 C 79 16 140/80 H 95 04/11/18 07:42 04/11/18 07:42 04/11/18 07:42 04/11/18 07:42 04/11/18 07:42 Laboratory Results 04/11/18 05:10 04/11/18 05:10 04/10/18 04/11/18 04/12/18 05:59 05:59 05:59 Intake Total 2007 900 Output Total 1005 325 Balance 1003 575 PT 14.1 SEC (12.0-15.0) 04/04/18 13:47 INR 1.07 (0.83-1.16) 04/04/18 13:47 ICD10 Worksheet Patient Problems: Problems Problem Status Onset Abdominal pain Acute
--- NOTE | 2018-04-11 13:52 | SOAPPROG ---
[facility] Progress Note Assessment/Plan: Assessment: 1. GIST, locally recurrent. 2. Remote history of prostate cancer w/ rising PSA CT scan shows ?bone lesion. more likely to be related to prostate cancer rather than GIST. Plan: - will get bone scan to evaluate ?lesion seen on CT - f/u in clinic with me in 1-2 weeks. Will plan to start Gleevec for GIST. Will likely hold off on Rx for prostate cancer if PSA only, as apparently this PSA level is stable x years per pt report. will request additional records. 04/11/18 13:50 Subjective: feeling well today. Objective: exam unchanged Vital Signs Temp Pulse Resp BP Pulse Ox 36.8 C 79 16 140/80 H 95 04/11/18 07:42 04/11/18 07:42 04/11/18 07:42 04/11/18 07:42 04/11/18 07:42 Laboratory Results 04/11/18 05:10 04/11/18 05:10 04/10/18 04/11/18 04/12/18 05:59 05:59 05:59 Intake Total 2007 900 Output Total 1005 325 Balance 1003 575 PT 14.1 SEC (12.0-15.0) 04/04/18 13:47 INR 1.07 (0.83-1.16) 04/04/18 13:47 ICD10 Worksheet Patient Problems: Problems Problem Status Onset Abdominal pain Acute
[2018-04-11] MEDS ORDERED: COLCHICINE 0.6 MG CAP/TAB PO ONE ×2 (14:54→16:00)
[2018-04-11] MEDS: HYDROmorphONE/DILAUDID 1 MG/ML INJ IVP PRN (21:35)
[2018-04-12] MEDS: ENOXAPARIN 40 MG/0.4 ML SYR SC SCH (08:05)
[2018-04-12] MEDS: PANTOPRAZOLE SODIUM 40 MG VIAL IVP SCH (08:05)
--- NOTE | 2018-04-12 09:05 | SOAPPROG ---
SOAP Progress Note Assessment/Plan: Assessment/plan: 68 y/o M s/p laparotomy for GIST tumor resection, partial gastrectomy and liver biopsy POD #8 Path: recurrent GIST. Responded to Gleevac in the past, will likely need it indefinitely Elevated PSA and hx of prostate CA. Bone scan later today. Very small stomach after subtotal gastrectomy. Will be at risk for pernicious anemia. Will likely need B12 injections as outpt. Acute gout attack, bilateral medial malleoli. Colchicine helped yesterday. No toradol or indocin given gastrectomy VTE ppx: lovenox Pull drain today. Abdominal cramps. Go back to full liquid diet. Dispo: likely home later today or tomorrow pending how he tolerates full liquids. S: Doing well overall. Had abdominal cramps yesterday after solid food intake yesterday. Zofran helped. Passing gas and having BMs. Less loose. O: Alert Afebrile VSS rrr ctab, no increased wob abdomen: soft, nontender, nondistended, normoactive BS, incision cdi, JONATHAN with sersang drainage 04/12/18 09:01 Objective: Vital Signs Temp Pulse Resp BP Pulse Ox 36.5 C 98 16 102/66 95 04/12/18 08:00 04/12/18 08:00 04/12/18 08:00 04/12/18 08:00 04/12/18 08:00 Laboratory Results 04/11/18 05:10 04/11/18 05:10 04/11/18 04/12/18 04/13/18 05:59 05:59 05:59 Intake Total 900 Output Total 325 400 Balance 575 -400 PT 14.1 SEC (12.0-15.0) 04/04/18 13:47 INR 1.07 (0.83-1.16) 04/04/18 13:47 ICD10 Worksheet Patient Problems: Problems Problem Status Onset Abdominal pain Acute
[2018-04-12] MEDS: CHOLECALCIFEROL VIT D3 1,000 UNITS TAB PO SCH ×2 (10:28→17:25)
[2018-04-12] MEDS: VITAMIN B COMPLEX 1 EA CAP/TAB PO SCH ×2 (10:28→17:25)
[2018-04-12] MEDS: OMEGA-3 FATTY ACIDS 1,000 MG CAP PO SCH ×2 (10:28→17:25)
[2018-04-12] MEDS: D5W 1/2 NS W/ 20 KCl/L 1,000 ML IV SCH (11:55)
[2018-04-12] MEDS: COLCHICINE 0.6 MG CAP/TAB PO SCH (12:13)
[2018-04-12 13:48] LABS: PLATELET COUNT 406 10^3/uL (150-400)
--- NOTE | 2018-04-12 15:10 | ASMTCMCOM ---
CM Note CM Note Notes: Pts case discussed w/ CLARIBEL Jarrett and Marci Thrasher NP. CM rescheduled pts appointment w/ Dr. Connelly for 04/18 at 1PM. CM notified [facility] that pt will not be discharging today. CM to follow. Plan: [facility]; PT Date Signed: 04/12/2018 03:09 PM Electronically Signed By:SHYANN Kumar
[2018-04-12] MEDS ORDERED: IOPAMIDOL (ISOVUE 370) 100 ML BTL IV ONE (16:16)
[2018-04-12] MEDS ORDERED: LR 1,000 ML IV ONE (17:18)
[2018-04-12] MEDS ORDERED: BUPIVACAINE 0.25% 30 ML SDV ONE ×3 (17:22→20:32)
[2018-04-12] MEDS ORDERED: EPINEPHrine 1 MG/ML INJ ONE (17:22)
--- NOTE | 2018-04-12 17:33 | SOAPPROG ---
SOAP Progress Note Assessment/Plan: Assessment: 68yo M s/p en bloc resection stomach, liver. - new pain, elevated WBC, tachy - CT with PO contrast shows anterior gastric leak - to OR for exploration, washout, repair. RBA discussed Plan: 04/12/18 17:32 Objective: Vital Signs Temp Pulse Resp BP Pulse Ox 36.8 C 96 22 H 137/73 H 94 04/12/18 15:22 04/12/18 15:22 04/12/18 15:22 04/12/18 15:22 04/12/18 15:22 Laboratory Results 04/12/18 12:28 04/12/18 12:28 04/11/18 04/12/18 04/13/18 05:59 05:59 05:59 Intake Total 900 300 Output Total 325 400 Balance 575 -400 300 PT 14.1 SEC (12.0-15.0) 04/04/18 13:47 INR 1.07 (0.83-1.16) 04/04/18 13:47 ICD10 Worksheet Patient Problems: Problems Problem Status Onset Abdominal pain Acute
[2018-04-12] MEDS ORDERED: MIDAZOLAM 2 MG/2 ML VIAL ONE (17:48)
[2018-04-12] MEDS ORDERED: MIDAZOLAM 2 MG/2 ML VIAL IVP ONE (17:48)
--- NOTE | 2018-04-12 17:52 | PDANEPAE ---
ANE Past Medical History - Cardiovascular History Hx Hypertension: No Hx Arrhythmias: No Hx Chest Pain: No Hx Coronary Artery / Peripheral Vascular Disease: No Hx CHF / Valvular Disease: No Hx Palpitations: No - Pulmonary History Hx COPD: No Hx Asthma/Reactive Airway Disease: No Hx Recent Upper Respiratory Infection: No Hx Oxygen in Use at Home: No Hx Sleep Apnea: No Sleep Apnea Screening Result - Last Documented: Positive Pulmonary History Comment: LUCIO triggers only - Neurologic History Hx Cerebrovascular Accident: No Hx Seizures: No Hx Dementia: No - Endocrine History Hx Diabetes: No Hypothyroid: No Hyperthyroid: No Obesity: no - Renal History Hx Renal Disorders: No - Liver History Hx Hepatic Disorders: No - Neurological & Psychiatric Hx Hx Neurological and Psychiatric Disorders: No - Cancer History Hx Cancer: Yes Cancer History Comment: prostate. gist tumor - Congenital Disorder History Hx Congenital Disorders: No - GI History GERD: mild Hx Gastrointestinal Disorders: No Gastrointestinal History Comment: GIST - Other Health History Other Health History: wears glasses. missing tooth upper left - Chronic Pain History Chronic Pain: Yes (abdomen) - Surgical History Prior Surgeries: left hernia inguinal, 12/2017. mass removal from small intestine, 2012. gist tumor removal, 2009. prostatectomy, 2004. left inguinal hernia repair, 1968 ANE Review of Systems Review of Systems: - Exercise capacity METS (RN): 4 METS ANE Patient History - Allergies Allergies/Adverse Reactions: No Known Allergies Allergy (Verified 04/04/18 14:21) - Home Medications Home medications: home medication list seen and reviewed Home Medications: Herbals/Supplements -Info Only 1 cap PO AD 04/04/18 [Last Taken 04/03/18] Cholecalciferol Vit D3 [Vitamin D3 (*)] 2,000 units PO DAILY 04/05/18 [Last Taken Unknown] Manns Choice-3 Fatty Acids [Fish Oil 1000 mg (*)] 1,000 mg PO DAILY 04/05/18 [Last Taken Unknown] Vitamin B Complex [Vitamin B Complex (OTC)] 1 each PO DAILY 04/05/18 [Last Taken Unknown] - NPO status NPO Status: no food or drink >8 hours NPO Since - Liquids (Date): 04/12/18 NPO Since - Liquids (Time): 15:30 NPO Since - Solids (Date): 04/12/18 NPO Since - Solids (Time): 11:00 - Anes Hx Anes Hx: no prior problems - Smoking Hx Smoking Status: Never smoked - Family Anes Hx Family Hx Anesthesia Complications: none ANE Labs/Vital Signs - Labs Result Diagrams: 04/12/18 12:28 04/12/18 12:28 - Vital Signs Blood Pressure: 137/73 Heart Rate: 96 Respiratory Rate: 22 O2 Sat (%): 94 Height: 173.99 cm Weight: 73.936 kg ANE Physical Exam - Airway Neck exam: FROM Mallampati Score: Class 2 Mouth exam: poor dentition - Pulmonary Pulmonary: no respiratory distress, no rales or rhonchi, clear to auscultation - Cardiovascular Cardiovascular: tachycardia - ASA Status ASA Status: III ANE Anesthesia Plan Anesthesia Plan: general endotracheal anesthesia
[2018-04-12] MEDS ORDERED: LIDOCAINE 2% 5 ML SDV ONE (18:00)
[2018-04-12] MEDS ORDERED: PROPOFOL 200 MG/20 ML VIAL ONE (18:00)
[2018-04-12] MEDS ORDERED: ROCURONIUM 50 MG/5 ML VIAL ONE ×2 (18:00→18:37)
[2018-04-12] MEDS ORDERED: PIPERACILLIN/TAZO 3.375 GM/DEX 50 ML IV ONE (18:30)
[2018-04-12] MEDS ORDERED: KETAMINE 200 MG/20 ML VIAL ONE (18:53)
[2018-04-12] MEDS ORDERED: PHENYLEPHRINE HCL 100 MCG/ML SYR ONE (19:04)
[2018-04-12] MEDS ORDERED: PHENYLEPHRINE 10 MG/ML SDV ONE (19:25)
[2018-04-12] MEDS ORDERED: ALBUMIN 5% 250 ML BOTTLE IV ONE ×2 (20:30→20:36)
[2018-04-12] MEDS ORDERED: SUGAMMADEX SODIUM 200 MG/2 ML VIAL IVP ONE (20:49)
[2018-04-12] MEDS ORDERED: fentaNYL 100 MCG/2 ML INJ IVP PRN (20:59)
[2018-04-12] MEDS ORDERED: PROMETHAZINE HCL 25 MG/ML INJ IVP PRN (20:59)
[2018-04-12] MEDS ORDERED: LR 500 ML IV PRN (20:59)
[2018-04-12] MEDS ORDERED: NALOXONE HCL 0.4 MG/ML INJ IVP PRN ×2 (20:59→21:21)
[2018-04-12] MEDS ORDERED: ONDANSETRON 4 MG/2 ML VIAL IVP PRN (20:59)
[2018-04-12] MEDS ORDERED: fentaNYL 100 MCG/2 ML INJ ONE ×2 (21:01→21:48)
[2018-04-12] MEDS ORDERED: HYDROmorphONE/DILAUDID 6 MG/30 ML PCA IV PRN (21:21)
--- NOTE | 2018-04-12 21:25 | POSTANESTH ---
Post Anesthetic Evaluation Cardiovascular Status: Similar to Pre-Op Cond, Other, See Comment (Still tachycardic (105) but BP stable (121/63).) Respiratory Status: Similar to Pre-op Cond., Tx Decrease in SpO2 (SpO2 88-89% on 8 LPM mask. He may need CPAP.) Level of Consciousness/Mental Status: Can Participate in Eval, Mildly Sleepy, Arousable Pain Control: Adequate, Prn Tx Ordered Nausea/Vomiting Control: Adequate, Prn Tx Ordered Complications Possibly Related to Anesthesia: None Noted (Still quite ill; will send him to ICU overnight.)
--- NOTE | 2018-04-12 21:59 | POSTOPPROG ---
Post Op Note Date of Operation: 04/12/18 Surgeon: Phuc Rouse [employer] Qa Analyst: Reece Sanders MD Anesthesiologist: Marlene Anesthesia: GET(General Endotracheal) Pre-op Diagnosis: free air Post-op Diagnosis: necrosis of stomach Procedure: ex-lap, completion gastrectomy, RNY gastrojejunostomy, J tube Findings: remnant stomach necrotic, RNY EJ, J tube Inf/Abcess present in the surg proc area at time of surgery?: Yes Depth: Organ Space EBL: 50-100 Total fluids administered: 3000L washout Drains: Geovanni Garber Specimen(s): completion gastrectomy peritoneal fluid culture jejunal mass biopsy
[2018-04-12 22:30] LABS: PLATELET COUNT 501 10^3/uL (150-400)
[2018-04-13] MEDS: COLCHICINE 0.6 MG CAP/TAB PO SCH ×3 (00:16→21:51)
[2018-04-13] MEDS: PANTOPRAZOLE SODIUM 40 MG VIAL IVP SCH ×2 (00:19→10:07)
[2018-04-13] MEDS: PIPERACILLIN/TAZO 3.375 GM/DEX 50 ML IV SCH ×4 (01:16→21:50)
[2018-04-13] MEDS: D5W NS 1,000 ML IV SCH ×2 (03:16→12:14)
[2018-04-13 05:40] LABS: PLATELET COUNT 441 10^3/uL (150-400)
--- NOTE | 2018-04-13 07:33 | GOP ---
DATE OF OPERATION: 04/12/2018 SURGEON: Phuc Rouse MD REGISTERED NURSE AMBULATORY: Ankush Sanders MD. ANESTHESIA: General endotracheal. ANESTHESIOLOGIST: Dr. Kenny Rosario. PREOPERATIVE DIAGNOSIS: Intraabdominal free air, possible leak. POSTOPERATIVE DIAGNOSIS: Necrosis of remainder of stomach. PROCEDURE PERFORMED: 1. Exploratory laparotomy. 2. Completion gastrectomy. 3. Emily-en-Y Esophagojejunostomy, Retrocolic 4. Jejunostomy feeding tube placement. 5. Abdominal washout. 7. Transversus Abdominis Plane (TAP) block, bilateral FINDINGS: The remnant stomach was essentially necrotic from the anastomosis all the way to the GE junction. It was successfully resected. A retrocolic Emily-en-Y esophagojejunostomy was performed. An 18-Panamanian jejunostomy feeding tube was placed. SPECIMENS: 1. Completion gastrectomy. 2. Peritoneal fluid for culture. 1. Biopsy of jejunal mass, question metastatic disease. DRAINS 1. 10Fr Flat JONATHAN adjacent to anastomosis and duodenal stump 2. 18Fr Jejunostomy feeding tube 3. ESTIMATED BLOOD LOSS: 100 cc. DESCRIPTION OF PROCEDURE: The patient was greeted in the preoperative suite. Once again, risks, benefits, and alternatives were discussed. Consent was signed. He was then brought back to the operative suite, placed on the OR table in supine position after all anesthesia machines, including SCDs were on and functioning. World Health Organization time-out was performed. After successful induction of general anesthesia, the patient's abdomen was prepped and draped in typical sterile fashion. I commenced the procedure by opening up his previous incision and immediately encountered what appeared to be gastric contents. This was successfully suctioned out. After removing the majority of the gastric contents, I washed out the left upper quadrant. I identified a very large hole in what appeared to be necrotic gastric wall. The anastomosis actually appeared to be intact. There was a significant amount of omental fat, which was long and soft. I successfully dissected this off. After dissecting this off, I turned my attention toward resecting the necrotic portion of stomach. I sharply dissected the 1st portion of the duodenum. This was well perfused. Sharply dissected the stomach. The majority of this had what appeared to be thrombosed veins within the mucosa. It did not really bleed very much. I ended up resecting the entire stomach all the way up to the GE junction sharply. The distal esophagus was grasped with an Allis clamp to prevent retraction. The specimen was then passed off. I then irrigated the abdomen with 3 L sterile saline noting clear effluent in the suction canister. The patient, at this point in time, was hemodynamically stable, and I made the decision to put him back into continuity. To do this, I performed a Emily-en-Y esophagojejunostomy. I reflected the transverse mesocolon cranially, identified the ligament of Treitz, selected a site approximately 20 cm distal to this, and successfully divided the jejunum at this site. A defect was made in the transverse mesocolon, and the Emily limb was successfully passed through. It was under minimal tension. In an end-to-side fashion, I successfully sewed the back wall of the esophagus to the inferior portion of the Emily limb using multiple interrupted 3-0 PDS stitches. An enterotomy was made in the small bowel, and the anterior wall was sewn in the same fashion. A leak test was performed, which was negative. I then turned my attention toward putting the small bowel back in continuity with the biliary pancreatic limb. The proximal bowel was then placed in a [id number] fashion with the distal jejunum approximately 50 cm distal to my Emily limb. In a [id number] fashion, I created a common enterotomy by using a 75 mm staple load. The common enterotomy was closed with a running 3-0 PDS suture. This was oversewn. Approximately 10 cm distal to this, I placed an 18-Panamanian jejunostomy feeding tube. It was successfully placed within the small bowel. A pursestring suture was tied around it. The balloon was inflated and multiple stay sutures were placed along the jejunum. A 10-Panamanian JONATHAN was then brought into the operative field through a separate stab incision in the right abdomen. I brought it into the abdomen. It was placed anterior to the esophagojejunostomy and allowed to lay next to the duodenal stump. It was attached to the skin with an interrupted nylon suture. I turned my attention now toward closing. The fascia was reapproximated with a running #1 PDS. The skin was irrigated. Tap block was performed by infiltrating 0.25% Marcaine with epinephrine into the transversus space bilaterally. Skin was closed with kvng. Sterile dressings were placed. The patient was then extubated in the operative suite and taken to the PACU in satisfactory condition. COUNTS: All counts were reported as correct x2. /[id number]/MODL MTDD
--- NOTE | 2018-04-13 09:01 | SOAPPROG ---
SANDRA Progress Note Assessment/Plan: Assessment: 68yo M s/p en bloc resection stomach, liver s/p takeback for completion gastrectomy, RNY esophagojejunostoy, J tube - VSS, HDS - pain is well controlled - abdomen is soft, ok to flush J tube today, will likely start trickle tomorrow - IV abx, gram stain showing GPCs. Zosyn - keep ICU today, OOB Plan: 04/12/18 17:32 04/13/18 08:58 04/13/18 09:00 Subjective: pain is controlled, no bowel function Objective: Vital Signs Temp Pulse Resp BP Pulse Ox 36.5 C 95 20 106/70 96 04/12/18 22:27 04/13/18 04:00 04/13/18 04:00 04/13/18 04:00 04/13/18 04:00 Microbiology 04/12/18 18:25 Gram Stain - Final Peritoneal Fluid - Eswab Laboratory Results 04/13/18 05:25 04/13/18 05:25 04/12/18 04/13/18 04/14/18 05:59 05:59 05:59 Intake Total 3398 Output Total 400 790 Balance -400 2608 PT 14.1 SEC (12.0-15.0) 04/04/18 13:47 INR 1.07 (0.83-1.16) 04/04/18 13:47 ICD10 Worksheet Patient Problems: Problems Problem Status Onset Abdominal pain Acute
[2018-04-13] MEDS: ENOXAPARIN 40 MG/0.4 ML SYR SC SCH (10:06)
[2018-04-13] MEDS: OMEGA-3 FATTY ACIDS 1,000 MG CAP PO SCH (10:07)
[2018-04-13] MEDS: CHOLECALCIFEROL VIT D3 1,000 UNITS TAB PO SCH (10:07)
[2018-04-13] MEDS: VITAMIN B COMPLEX 1 EA CAP/TAB PO SCH (10:08)
[2018-04-13] MEDS: FLUCONAZOLE/NaCl 200 ML IV SCH (10:08)
[2018-04-13] MEDS: HYDROmorphONE/DILAUDID 1 MG/ML INJ IVP PRN ×4 (10:08→19:53)
--- NOTE | 2018-04-13 15:07 | PDINTPN ---
Web Coordinator Progress Note Assessment/Plan: Assessment: Status post total gastrectomy 04/12: Performed due to gastric leak/peritonitis from gastric necrosis following partial gastrectomy on 04/06. Clinically stable , with normal vital signs and good pain control. 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 Gout: Patient had a recent flare after his surgery last week, but he reports that he has good control of his pain now. Anemia: Likely due to perioperative blood loss and pre-existing anemia. H/H stable Nutrition: The patient has not eaten over week Plan: Continue close postoperative monitoring. Continue Zosyn. Can restart colchicine or use p.o./IV steroids if he starts having increased symptoms of gout. 04/13/18 15:09 Subjective: The patient reports fairly good pain control. He feels very weak. He denies nausea or vomiting. His gout pain is minimal. Objective: Vital Signs Temp Pulse Resp BP Pulse Ox 36.7 C 90 23 H 123/51 H 97 04/13/18 12:00 04/13/18 12:00 04/13/18 12:00 04/13/18 12:00 04/13/18 12:00 Microbiology 04/12/18 18:25 Gram Stain - Final Peritoneal Fluid - Eswab Laboratory Results 04/13/18 05:25 04/13/18 05:25 04/12/18 04/13/18 04/14/18 05:59 05:59 05:59 Intake Total 3398 Output Total 400 790 Balance -400 2608 PT 14.1 SEC (12.0-15.0) 04/04/18 13:47 INR 1.07 (0.83-1.16) 04/04/18 13:47 Physical Exam - Physical Exam General Appearance: alert, no apparent distress EENT: normal ENT inspection Neck: normal inspection Respiratory: chest non-tender, lungs clear Cardiac/Chest: regular rate, rhythm, edema Abdomen: normal bowel sounds, non-tender Skin: normal color, warm/dry Extremities: normal inspection Neuro/Psych: alert, normal mood/affect, oriented x 3 ICD10 Worksheet Patient Problems: Problems Problem Status Onset Abdominal pain Acute
[2018-04-14] MEDS: HYDROmorphONE/DILAUDID 1 MG/ML INJ IVP PRN ×3 (00:26→20:33)
[2018-04-14] MEDS: PIPERACILLIN/TAZO 3.375 GM/DEX 50 ML IV SCH ×4 (00:55→17:23)
[2018-04-14 06:33] LABS: PLATELET COUNT 492 10^3/uL (150-400)
[2018-04-14] MEDS: COLCHICINE 0.6 MG CAP/TAB PO SCH ×2 (09:33→20:35)
[2018-04-14] MEDS: CHOLECALCIFEROL VIT D3 1,000 UNITS TAB PO SCH (09:33)
[2018-04-14] MEDS: FLUCONAZOLE/NaCl 200 ML IV SCH (09:33)
[2018-04-14] MEDS: ENOXAPARIN 40 MG/0.4 ML SYR SC SCH (09:33)
[2018-04-14] MEDS: VITAMIN B COMPLEX 1 EA CAP/TAB PO SCH (09:34)
[2018-04-14] MEDS: OMEGA-3 FATTY ACIDS 1,000 MG CAP PO SCH (09:34)
--- NOTE | 2018-04-14 10:24 | SOAPPROG ---
SANDRA Progress Note Assessment/Plan: Assessment: 68yo M s/p en bloc resection stomach, liver s/p takeback for completion gastrectomy, RNY esophagojejunostoy, J tube - VSS, HDS, afebrile - pain is well controlled, cont [employer] - abdomen is soft, aTTP. JONATHAN is serosang. Dressing is clean - Cont NPO, NGT to LIWS. Strict NPO - trickle some J tube feeds today, no more than 10cc/HR - cont BS abx, Cx growing enterobacter, should have good coverage with Zosyn. Also on fluconazole, if WBC stays elevated will ask ID to see - Hb down to just over 7, recheck this afternoon. Anticipate that he will need transfusion - Ambulate, keep SDU Plan: 04/12/18 17:32 04/13/18 08:58 04/13/18 09:00 04/14/18 10:22 Subjective: pain is controlled, no flatus Objective: Vital Signs Temp Pulse Resp BP Pulse Ox 36.9 C 83 18 119/62 96 04/13/18 20:00 04/14/18 04:00 04/14/18 04:00 04/14/18 04:00 04/14/18 04:00 Microbiology 04/12/18 18:25 Gram Stain - Final Peritoneal Fluid - Eswab Laboratory Results 04/14/18 06:00 04/14/18 06:00 04/13/18 04/14/18 04/15/18 05:59 05:59 05:59 Intake Total 3398 3317 Output Total 790 875 350 Balance 2608 2442 -350 PT 14.1 SEC (12.0-15.0) 04/04/18 13:47 INR 1.07 (0.83-1.16) 04/04/18 13:47 ICD10 Worksheet Patient Problems: Problems Problem Status Onset Abdominal pain Acute
--- NOTE | 2018-04-14 11:14 | PDINTPN ---
Flight Test Shop Mechanic Progress Note Assessment/Plan: Assessment: Status post total gastrectomy 04/12: Performed due to gastric leak/peritonitis from gastric necrosis following partial gastrectomy of GIST tumor on 04/06. Clinically stable, with normal vital signs and good pain control. 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 Gout: Patient had a recent flare after his surgery last week, but he reports that he has good control of his pain now. Anemia: Likely due to perioperative blood loss and pre-existing anemia. H/H down a point to 7.3 this morning Nutrition: The patient has not eaten over week Plan: Continue close postoperative monitoring. Continue Zosyn, fluconazole. Can restart colchicine or use p.o./IV steroids if he starts having increased symptoms of gout. Follow H/H, transfuse if falls further. Start jejunostomy tube feeds at a slow rate. 04/14/18 11:12 Subjective: Feels a bit better. Strength improved. Has throat congestion. Pain controlled. Objective: Vital Signs Temp Pulse Resp BP Pulse Ox 36.9 C 83 18 119/62 96 04/13/18 20:00 04/14/18 04:00 04/14/18 04:00 04/14/18 04:00 04/14/18 04:00 Microbiology 04/12/18 18:25 Gram Stain - Final Peritoneal Fluid - Eswab Laboratory Results 04/14/18 06:00 04/14/18 06:00 04/13/18 04/14/18 04/15/18 05:59 05:59 05:59 Intake Total 3398 3317 Output Total 790 875 350 Balance 2608 2442 -350 PT 14.1 SEC (12.0-15.0) 04/04/18 13:47 INR 1.07 (0.83-1.16) 04/04/18 13:47 Physical Exam - Physical Exam General Appearance: alert, no apparent distress EENT: normal ENT inspection Neck: normal inspection Respiratory: lungs clear, normal breath sounds Cardiac/Chest: regular rate, rhythm, No edema Abdomen: normal bowel sounds, non-tender Skin: normal color, warm/dry Extremities: normal inspection Neuro/Psych: alert, normal mood/affect, oriented x 3 ICD10 Worksheet Patient Problems: Problems Problem Status Onset Abdominal pain Acute
[2018-04-14] MEDS: D5W NS 1,000 ML IV SCH (17:23)
[2018-04-15] MEDS: PIPERACILLIN/TAZO 3.375 GM/DEX 50 ML IV SCH ×5 (00:56→23:12)
[2018-04-15] MEDS: HYDROmorphONE/DILAUDID 1 MG/ML INJ IVP PRN ×3 (04:06→23:12)
[2018-04-15 08:42] LABS: PLATELET COUNT 574 10^3/uL (150-400)
[2018-04-15] MEDS: CHOLECALCIFEROL VIT D3 1,000 UNITS TAB PO SCH (09:01)
[2018-04-15] MEDS: COLCHICINE 0.6 MG CAP/TAB PO SCH ×2 (09:01→17:48)
[2018-04-15] MEDS: FLUCONAZOLE/NaCl 200 ML IV SCH (09:02)
[2018-04-15] MEDS: OMEGA-3 FATTY ACIDS 1,000 MG CAP PO SCH (09:02)
[2018-04-15] MEDS: VITAMIN B COMPLEX 1 EA CAP/TAB PO SCH (09:02)
[2018-04-15] MEDS: ENOXAPARIN 40 MG/0.4 ML SYR SC SCH (09:02)
--- NOTE | 2018-04-15 09:15 | SOAPPROG ---
SOAP Progress Note Assessment/Plan: Assessment: 68yo M s/p en bloc resection stomach, liver s/p takeback for completion gastrectomy, RNY esophagojejunostoy, J tube - VSS, HDS, afebrile - pain is well controlled - abdomen is soft, aTTP. JONATHAN is serosang. Dressing is clean - Cont NPO, NGT to LIWS. Strict NPO! - Tolerating trickle feeds, advance today to goal - WBC down trending, 19 today. Cx still growing enterobacter which is sensitive to Zosyn - Hb <7, 2 units packed cells. I dont think hes acutely bleeding but equilibrating. - Ambulate, increase activity. Dont touch NGT. Plan: 04/12/18 17:32 04/13/18 08:58 04/13/18 09:00 04/14/18 10:22 04/15/18 09:13 04/15/18 09:14 Subjective: everything is starting to set in Objective: Vital Signs Temp Pulse Resp BP Pulse Ox 36.7 C 72 21 H 129/74 H 95 04/15/18 07:51 04/15/18 07:51 04/15/18 07:51 04/15/18 07:51 04/15/18 07:51 Microbiology 04/12/18 18:25 Gram Stain - Final Peritoneal Fluid - Eswab Laboratory Results 04/15/18 08:05 04/15/18 05:20 04/14/18 04/15/18 04/16/18 05:59 05:59 05:59 Intake Total 3317 2758 Output Total 875 1125 200 Balance 2442 1633 -200 PT 14.1 SEC (12.0-15.0) 04/04/18 13:47 INR 1.07 (0.83-1.16) 04/04/18 13:47 ICD10 Worksheet Patient Problems: Problems Problem Status Onset Abdominal pain Acute
[2018-04-15] MEDS ORDERED: ALTEPLASE 2 MG VIAL IVP PRN (11:16)
--- NOTE | 2018-04-15 13:39 | ASMTCMCOM ---
CM Note CM Note Notes: Pt continues to progress medically. Pt recommending Homecare, [facility] following. Pt has PCP appt scheduled for at 1pm with Dr. Connelly. CM to follow. Plan: Home with [facility] and family supports. Date Signed: 04/15/2018 01:39 PM Electronically Signed By:SHYANN Nino
[2018-04-16] MEDS: PIPERACILLIN/TAZO 3.375 GM/DEX 50 ML IV SCH ×4 (05:28→23:10)
[2018-04-16] MEDS: COLCHICINE 0.6 MG CAP/TAB PO SCH ×2 (07:22→17:43)
[2018-04-16] MEDS: CHOLECALCIFEROL VIT D3 1,000 UNITS TAB PO SCH (07:22)
[2018-04-16] MEDS: OMEGA-3 FATTY ACIDS 1,000 MG CAP PO SCH (07:22)
[2018-04-16] MEDS: VITAMIN B COMPLEX 1 EA CAP/TAB PO SCH (07:22)
[2018-04-16] MEDS: FLUCONAZOLE/NaCl 200 ML IV SCH (08:19)
[2018-04-16] MEDS: ENOXAPARIN 40 MG/0.4 ML SYR SC SCH (08:19)
[2018-04-16] MEDS: NS 1,000 ML IV SCH (13:34)
--- NOTE | 2018-04-16 13:54 | SOAPPROG ---
SANDRA Progress Note Assessment/Plan: Assessment/Plan: 68 y/o M s/p laparotomy for GIST tumor resection, partial gastrectomy and liver biopsy, now s/p completion gastrectomy c victor hugo en Y esophagojejunostomy, J tube, washout. - VSS, HDS, afebrile - pain is well controlled - abdomen is soft, aTTP. JONATHAN is serosang. Dressing is clean - Cont NPO, NGT to LIWS. Strict NPO! - Tolerating trickle feeds, advance to goal - WBC down trending, 19 yesterday. Cx still growing enterobacter which is sensitive to Zosyn - CBC and CMETP tomorrow - Ambulate, increase activity. Don't touch NGT. - Path c GIST, appreciate oncology consult. Likely plan for gastrograffin swallow study tomorrow and consideration of NGT removal. Also seen by Dr. Dias today. Doing better. Dispo pending. Patient highly motivated to get better. S: pain controlled. 2 loose BMs. no n/v. no chills. trying to stay positive. O: Alert mmm rrr ctab, no increased wob abdomen: soft, nontender, nondistended, +BS, drain serosanguinous, inc well dressed c silver dressing 04/16/18 13:50 Objective: Vital Signs Temp Pulse Resp BP Pulse Ox 36.8 C 69 20 125/51 H 96 04/16/18 08:00 04/16/18 08:00 04/16/18 00:00 04/16/18 08:00 04/16/18 08:00 Microbiology 04/12/18 18:25 Gram Stain - Final Peritoneal Fluid - Eswab Laboratory Results 04/15/18 08:05 04/15/18 05:20 04/15/18 04/16/18 04/17/18 05:59 05:59 05:59 Intake Total 2758 2723 Output Total 1125 1725 Balance 1633 998 PT 14.1 SEC (12.0-15.0) 04/04/18 13:47 INR 1.07 (0.83-1.16) 04/04/18 13:47 ICD10 Worksheet Patient Problems: Problems Problem Status Onset Abdominal pain Acute
--- NOTE | 2018-04-16 14:32 | ASMTCMCOM ---
CM Note CM Note Notes: CM rescheduled pt's PCP appt with Dr. Connelly for 04/25/28 at 1:00pm. PT rec HC, OT rec Home. Pt is linked with [facility]. CM to follow. Plan: [facility] Homecare. Date Signed: 04/16/2018 02:32 PM Electronically Signed By:SHYANN Nino
[2018-04-16] MEDS: HYDROCOD/APAP 7.5/325 IN 15ML UDCUP PO PRN (22:55)
[2018-04-17] MEDS: NS 1,000 ML IV SCH (03:30)
[2018-04-17] MEDS: PIPERACILLIN/TAZO 3.375 GM/DEX 50 ML IV SCH ×4 (06:31→23:16)
[2018-04-17 07:03] LABS: PLATELET COUNT 534 10^3/uL (150-400)
--- NOTE | 2018-04-17 09:03 | SOAPPROG ---
SOAP Progress Note Assessment/Plan: Assessment/plan: 68 y/o M s/p laparotomy for GIST tumor resection, partial gastrectomy and liver biopsy, now s/p completion gastrectomy c victor hugo en Y esophagojejunostomy, J tube, washout. Path: recurrent GIST. Responded to Gleevac in the past, will likely need it indefinitely Elevated PSA and hx of prostate CA. Bone scan revealed sammi to ribs. Will need anti-androgen therapy as outpt. VTE ppx: lovenox WBC trending down J tube. Tolerating goal feeds. Pain well controlled. Esophagram today. Hopefully will pull NG tube and advance to clears later today. Continue Zosyn Add iv Ativan prn for sleep. S: Doing well overall. Pain controlled. Slept well last night, but would like to have something available to help him sleep tonight. O: Alert Afebrile VSS rrr ctab, no increased wob abdomen: soft, appropriately ttp, nondistended, normoactive BS, incision cdi, JONATHAN with sersang drainage 04/17/18 08:55 Objective: Vital Signs Temp Pulse Resp BP Pulse Ox 36.9 C 68 16 135/75 H 92 04/16/18 23:06 04/16/18 23:06 04/16/18 23:06 04/16/18 23:06 04/16/18 23:06 Microbiology 04/12/18 18:25 Gram Stain - Final Peritoneal Fluid - Eswab Laboratory Results 04/17/18 06:48 04/17/18 06:48 04/16/18 04/17/18 04/18/18 05:59 05:59 05:59 Intake Total 2723 1520 Output Total 1725 625 Balance 998 895 PT 14.1 SEC (12.0-15.0) 04/04/18 13:47 INR 1.07 (0.83-1.16) 04/04/18 13:47 ICD10 Worksheet Patient Problems: Problems Problem Status Onset Abdominal pain Acute
[2018-04-17] MEDS: ENOXAPARIN 40 MG/0.4 ML SYR SC SCH (09:42)
[2018-04-17] MEDS: COLCHICINE 0.6 MG CAP/TAB PO SCH ×2 (09:46→19:32)
[2018-04-17] MEDS: CHOLECALCIFEROL VIT D3 1,000 UNITS TAB PO SCH (09:46)
[2018-04-17] MEDS: OMEGA-3 FATTY ACIDS 1,000 MG CAP PO SCH (09:46)
[2018-04-17] MEDS: VITAMIN B COMPLEX 1 EA CAP/TAB PO SCH (09:46)
[2018-04-17] MEDS: FLUCONAZOLE/NaCl 200 ML IV SCH (10:55)
--- NOTE | 2018-04-17 15:17 | ASMTCMCOM ---
CM Note CM Note Notes: CM discussed pts case w/ CLARIBEL Saez. Pt will most likely require tube feed at time of d/c. CM made a referral to [facility]. Brittanie from [facility] stopped by and did some teaching w/ pt. CM notified [facility] that pt will most likely be another 2-3 days until able to d/c. CM to follow. Plan: [facility]; CLARIBEL and [facility] Date Signed: 04/17/2018 03:17 PM Electronically Signed By:SHYANN Kumar
[2018-04-18] MEDS: PIPERACILLIN/TAZO 3.375 GM/DEX 50 ML IV SCH ×4 (06:27→23:03)
[2018-04-18] MEDS: ENOXAPARIN 40 MG/0.4 ML SYR SC SCH (08:59)
[2018-04-18] MEDS: COLCHICINE 0.6 MG CAP/TAB PO SCH ×2 (09:05→23:51)
[2018-04-18] MEDS: CHOLECALCIFEROL VIT D3 1,000 UNITS TAB PO SCH (09:05)
[2018-04-18] MEDS: VITAMIN B COMPLEX 1 EA CAP/TAB PO SCH (09:49)
[2018-04-18] MEDS: OMEGA-3 FATTY ACIDS 1,000 MG CAP PO SCH (09:49)
--- NOTE | 2018-04-18 11:57 | SOAPPROG ---
SOAP Progress Note Assessment/Plan: Assessment/plan: 68 y/o M s/p laparotomy for GIST tumor resection, partial gastrectomy and liver biopsy, now s/p completion gastrectomy c victor hugo en Y esophagojejunostomy, J tube, washout. Path: recurrent GIST. Responded to Gleevac in the past, will likely need it indefinitely Elevated PSA and hx of prostate CA. Bone scan revealed sammi to ribs. Will need anti-androgen therapy as outpt. VTE ppx: lovenox J tube. Tolerating goal feeds. Pain well controlled. Esophagram revealed no leak. Continue Zosyn Add iv Ativan prn for sleep. Pull NG tube today S: Doing well overall. Pain controlled. Tolerating clears. Denies n/v. O: Alert Afebrile VSS rrr ctab, no increased wob abdomen: soft, appropriately ttp, nondistended, normoactive BS, incision cdi, JONATHAN with sersang drainage 04/18/18 11:56 Objective: Vital Signs Temp Pulse Resp BP Pulse Ox 36.7 C 76 16 146/89 H 90 L 04/18/18 08:00 04/18/18 08:00 04/18/18 08:00 04/18/18 08:00 04/18/18 08:00 Microbiology 04/12/18 18:25 Gram Stain - Final Peritoneal Fluid - Eswab Laboratory Results 04/17/18 06:48 04/17/18 06:48 04/17/18 04/18/18 04/19/18 05:59 05:59 05:59 Intake Total 1520 3260 Output Total 635 11 0 Balance 885 3249 0 PT 14.1 SEC (12.0-15.0) 04/04/18 13:47 INR 1.07 (0.83-1.16) 04/04/18 13:47 ICD10 Worksheet Patient Problems: Problems Problem Status Onset Abdominal pain Acute
[2018-04-18] MEDS: LORazepam 2 MG/ML INJ IV PRN (22:48)
[2018-04-19] MEDS: PIPERACILLIN/TAZO 3.375 GM/DEX 50 ML IV SCH ×3 (05:06→17:26)
[2018-04-19] MEDS: ENOXAPARIN 40 MG/0.4 ML SYR SC SCH (08:44)
[2018-04-19] MEDS: COLCHICINE 0.6 MG CAP/TAB PO SCH ×2 (08:44→19:50)
[2018-04-19] MEDS: OMEGA-3 FATTY ACIDS 1,000 MG CAP PO SCH (08:45)
[2018-04-19] MEDS: CHOLECALCIFEROL VIT D3 1,000 UNITS TAB PO SCH (08:45)
[2018-04-19] MEDS: VITAMIN B COMPLEX 1 EA CAP/TAB PO SCH (08:46)
--- NOTE | 2018-04-19 14:45 | SOAPPROG ---
SANDRA Progress Note Assessment/Plan: Assessment: 68-year-old male status post laparotomy for gist tumor, partial gastrectomy and liver biopsy now status post complete gastrectomy with Emily-en-Y esophagojejunostomy, J-tube, washout. Patient is tolerating this small amount of clear liquid diet, still on TPN, reports minimal to no pain. Ambulating small amount, looks forward to going home. Physical exam Patient sitting in chair comfortable Abdomen soft nontender Sanjay is dry. Plan: Continue slowly advancing diet. Patient seen examined by Dr. Dias. 04/19/18 14:44 04/19/18 15:37 Objective: Vital Signs Temp Pulse Resp BP Pulse Ox 36.4 C 66 18 135/71 H 92 04/19/18 12:10 04/19/18 12:10 04/19/18 08:00 04/19/18 12:10 04/19/18 12:10 Microbiology 04/12/18 18:25 Gram Stain - Final Peritoneal Fluid - Eswab Anaerobic Culture - Final Enterobacter Cloacae Laboratory Results 04/17/18 06:48 04/17/18 06:48 04/18/18 04/19/18 04/20/18 05:59 05:59 05:59 Intake Total 3260 3415 200 Output Total 11 525 375 Balance 3249 2890 -175 PT 14.1 SEC (12.0-15.0) 04/04/18 13:47 INR 1.07 (0.83-1.16) 04/04/18 13:47 ICD10 Worksheet Patient Problems: Problems Problem Status Onset Abdominal pain Acute
--- NOTE | 2018-04-19 16:56 | ASMTCMCOM ---
CM Note CM Note Notes: 04/19/2018 Case Management Note Met w/pt to discuss d/c needs. On site visit from [facility]anie with [facility]. Angie can be reached at [phone] Planning for [facility]. Pt primary care is Dr. Carrera with an appointment scheduled next week. Pt anticipating d/c on Sunday. Case Management d/c poc: [facility] Case Management to follow. Date Signed: 04/19/2018 04:56 PM Electronically Signed By:Alivia Cartagena RN
[2018-04-19] MEDS: LORazepam 2 MG/ML INJ IV PRN (22:58)
[2018-04-20] MEDS: PIPERACILLIN/TAZO 3.375 GM/DEX 50 ML IV SCH ×4 (00:41→17:39)
[2018-04-20] MEDS: ENOXAPARIN 40 MG/0.4 ML SYR SC SCH (08:05)
[2018-04-20] MEDS: VITAMIN B COMPLEX 1 EA CAP/TAB PO SCH (08:20)
[2018-04-20] MEDS: OMEGA-3 FATTY ACIDS 1,000 MG CAP PO SCH (08:20)
[2018-04-20] MEDS: COLCHICINE 0.6 MG CAP/TAB PO SCH ×3 (08:20→21:20)
[2018-04-20] MEDS: CHOLECALCIFEROL VIT D3 1,000 UNITS TAB PO SCH (08:20)
--- NOTE | 2018-04-20 16:06 | SOAPPROG ---
SANDRA Progress Note Assessment/Plan: Assessment: 68-YEAR-OLD MALE WITH A GIANT 15 CM MID EPIGASTRIC TUMOR CAUSING HIM CONSIDERABLE PAIN, WEIGHT LOSS AND INABILITY TO EAT. HE HAS PAST HISTORY OF A GIST TUMOR RESECTION WAS STOMACH AND A 2ND OPERATION FOR RECURRENT GIST HE PRESENTS NOW FOR LAPAROTOMY. RISKS AND OPTIONS BEEN FULLY DISCUSSED INCLUDING INABILITY TO RESECT TUMOR, TUMOR RECURRENCE, INJURY TO ADJACENT STRUCTURES, MAJOR HEMORRHAGE AND OTHERS WE HAVE DISCUSSED THE OPTION OF TRYING TO STRICT TUMOR WITH [facility] BUT THAT MAY TAKE SEVERAL WEEKS AND HE IS IN CONSIDERABLE PAIN AND A ABILITY TO EAT AND WISHES TO PROCEED WITH SURGERY. HE KNOWS THIS MAY REQUIRE PARTIAL HEPATECTOMY AND SIGNIFICANT PORTION OF HIS STOMACH REMOVED. WE ARE UNSURE ABOUT PANCREATIC INVOLVEMENT Plan: LAPAROTOMY WITH RESECTION OF TUMOR 04/04/18 20:01 04/20/18 16:04 DOING WELL/AFEBRILE/EATING ALL MORE SOFT FOOD/AFEBRILE WBC STILL ELEVATED BUT IMPROVING/HEMATOCRIT STABLE URINE OUTPUT ADEQUATE MINIMAL JONATHAN DRAINAGE PLAN DC JONATHAN/ADVANCE DIET/WEAN OFF TUBE FEEDINGS/HOME 1-2 DAYS HOPEFULLY Objective: Vital Signs Temp Pulse Resp BP Pulse Ox 36.9 C 83 16 132/72 H 90 L 04/20/18 07:01 04/20/18 07:01 04/20/18 07:01 04/20/18 11:49 04/20/18 07:01 Microbiology 04/12/18 18:25 Gram Stain - Final Peritoneal Fluid - Eswab Anaerobic Culture - Final Enterobacter Cloacae Laboratory Results 04/17/18 06:48 04/17/18 06:48 04/19/18 04/20/18 04/21/18 05:59 05:59 05:59 Intake Total 3415 2937 Output Total 525 2045 Balance 2890 892 PT 14.1 SEC (12.0-15.0) 04/04/18 13:47 INR 1.07 (0.83-1.16) 04/04/18 13:47 ICD10 Worksheet Patient Problems: Problems Problem Status Onset Abdominal pain Acute - ICD10 Problem Qualifiers (1) Abdominal mass Qualifiers: Abdominal location: epigastric Qualified Code(s): R19.06 - Epigastric swelling, mass or lump
[2018-04-21] MEDS: PIPERACILLIN/TAZO 3.375 GM/DEX 50 ML IV SCH ×4 (01:12→17:40)
[2018-04-21] MEDS: COLCHICINE 0.6 MG CAP/TAB PO SCH ×2 (06:28→22:34)
[2018-04-21] MEDS: ENOXAPARIN 40 MG/0.4 ML SYR SC SCH (07:32)
[2018-04-21] MEDS: HYDROmorphONE/DILAUDID 1 MG/ML INJ IVP PRN (08:01)
[2018-04-21] MEDS: VITAMIN B COMPLEX 1 EA CAP/TAB PO SCH (08:12)
[2018-04-21] MEDS: OMEGA-3 FATTY ACIDS 1,000 MG CAP PO SCH (08:12)
[2018-04-21] MEDS: CHOLECALCIFEROL VIT D3 1,000 UNITS TAB PO SCH (08:12)
[2018-04-21 11:01] LABS: PLATELET COUNT 559 10^3/uL (150-400)
[2018-04-21] MEDS ORDERED: KETOROLAC 30 MG/1 ML SDV IVP ONE (11:30)
--- NOTE | 2018-04-21 13:48 | SOAPPROG ---
SANDRA Progress Note Assessment/Plan: Assessment: 68-YEAR-OLD MALE WITH A GIANT 15 CM MID EPIGASTRIC TUMOR CAUSING HIM CONSIDERABLE PAIN, WEIGHT LOSS AND INABILITY TO EAT. HE HAS PAST HISTORY OF A GIST TUMOR RESECTION WAS STOMACH AND A 2ND OPERATION FOR RECURRENT GIST HE PRESENTS NOW FOR LAPAROTOMY. RISKS AND OPTIONS BEEN FULLY DISCUSSED INCLUDING INABILITY TO RESECT TUMOR, TUMOR RECURRENCE, INJURY TO ADJACENT STRUCTURES, MAJOR HEMORRHAGE AND OTHERS WE HAVE DISCUSSED THE OPTION OF TRYING TO STRICT TUMOR WITH [facility] BUT THAT MAY TAKE SEVERAL WEEKS AND HE IS IN CONSIDERABLE PAIN AND A ABILITY TO EAT AND WISHES TO PROCEED WITH SURGERY. HE KNOWS THIS MAY REQUIRE PARTIAL HEPATECTOMY AND SIGNIFICANT PORTION OF HIS STOMACH REMOVED. WE ARE UNSURE ABOUT PANCREATIC INVOLVEMENT Plan: LAPAROTOMY WITH RESECTION OF TUMOR 04/04/18 20:01 04/20/18 16:04 DOING WELL/AFEBRILE/EATING ALL MORE SOFT FOOD/AFEBRILE WBC STILL ELEVATED BUT IMPROVING/HEMATOCRIT STABLE URINE OUTPUT ADEQUATE MINIMAL JONATHAN DRAINAGE PLAN DC JONATHAN/ADVANCE DIET/WEAN OFF TUBE FEEDINGS/HOME 1-2 DAYS HOPEFULLY 04/21/18 13:47 wound ok/ afebrile/ vs stable/ labs pending eating better/ good bm and flatus/ abd soft with bs Objective: Vital Signs Temp Pulse Resp BP Pulse Ox 36.7 C 80 16 124/78 H 90 L 04/21/18 07:23 04/21/18 07:23 04/21/18 07:23 04/21/18 07:23 04/21/18 07:23 Laboratory Results 04/21/18 10:35 04/21/18 10:35 04/20/18 04/21/18 04/22/18 05:59 05:59 05:59 Intake Total 2937 1537 Output Total 2045 900 Balance 892 637 PT 14.1 SEC (12.0-15.0) 04/04/18 13:47 INR 1.07 (0.83-1.16) 04/04/18 13:47 ICD10 Worksheet Patient Problems: Problems Problem Status Onset Abdominal pain Acute - ICD10 Problem Qualifiers (1) Abdominal mass Qualifiers: Abdominal location: epigastric Qualified Code(s): R19.06 - Epigastric swelling, mass or lump
[2018-04-21] MEDS ORDERED: KETOROLAC 15 MG/1 ML SDV IVP PRN (17:00)
[2018-04-22 08:17] VITALS: BP 136/78
--- NOTE | 2018-04-22 09:51 | PDIAF ---
- Diagnosis Diagnosis: s/p completion gastretomy for large GIST tumor Code Status: Full Code - Medication Management Senior Care Antibiotics: na Discharge Medications: electronically signed and located in the Home Medication List. PICC Care - Routine: N/A - Orders Services needed: Home Care, Registered Nurse, Physical Therapy Home Care Face to Face: I certify that this patient was under my care and that I had the required [id number] encounter meeting the encounter requirements on the discharge day. My findings support the fact that the patient is homebound as defined in Home Care Face to Face Continued: CMS Chapter 7 Medicare Benefits Manual 30.1.1 , The condition of the patient is such that there exists a normal inability to leave home and consequently, leaving home would require a considerable and taxing effort. Diet Recommendation: no restrictions on diet, other (small frequent meals, protein and fats at each meal) Diet Texture: Regular Texture Diet, Dysphagia 1 - Pureed Tube feeding: Please flush J tube with 20-30 cc water at each home nurse visit. Wound Care Instructions: No lifting over 15 lbs. Ok to shower. Avoid baths/ pools. Jimmie to be removed in office. May coil j tube up under a gauze dressing. Please flush jtube with 20-30 cc water at each nurse visit. thanks. Activity/Weight Bearing Restrictions: No lifting over 15 lbs. Ok to shower. Avoid baths/pools. Jimmie to be removed in office. May coil j tube up under a gauze dressing. Please flush jtube with 20-30 cc water at each nurse visit. thanks. Additional Instructions: Avoid heavy lifting. You may shower, but do not soak in a pool or tub. Follow up with Dr. Dias in our office next week. F/u c Dr. Connelly as planned. Follow up with oncology in the next 1-2 weeks to start treatment for GIST and likely recurrent prostate cancer. Call with fever, chills or worsening pain. - Follow Up Care Current Providers and Referrals: Adarsh Luna MD [Medical Doctor] - follow up in 1 week Gibran Dias MD [Medical Doctor] - follow up in 1 week NONE *PRIMARY CARE P,. [Unknown] - Malachi Connelly MD [Primary Care Provider] -
--- NOTE | 2018-04-22 10:27 | SOAPPROG ---
SOAP Progress Note Assessment/Plan: Assessment/Plan: 68 y/o M s/p laparotomy for GIST tumor resection, partial gastrectomy and liver biopsy, now s/p completion gastrectomy c victor hugo en Y esophagojejunostomy, J tube, washout. Tolerating diet. Ate a hamburger without the bun yesterday and eggs this am. Weaned from tube feeds. Keep J tube in place in case it is needed. D/c PICC. D/c to home. Small frequent meals with protein and fats. Outpatient nutrition info provided. F/u c , Maricel, and Jeremy. [facility] nurse and PT. Rx colchicine and lortab. S: pain controlled. +BMs. no n/v. no chills. eager to go home. O: Alert mmm rrr ctab, no increased wob abdomen: soft, nontender, nondistended, +BS, inc cdi. j tube site intact. 04/22/18 10:25 Objective: Vital Signs Temp Pulse Resp BP Pulse Ox 36.7 C 76 14 136/78 H 95 04/22/18 08:00 04/22/18 08:00 04/22/18 08:00 04/22/18 08:00 04/22/18 08:00 Laboratory Results 04/21/18 10:35 04/21/18 10:35 04/21/18 04/22/18 04/23/18 05:59 05:59 05:59 Intake Total 1537 1670 100 Output Total 900 1200 300 Balance 637 470 -200 PT 14.1 SEC (12.0-15.0) 04/04/18 13:47 INR 1.07 (0.83-1.16) 04/04/18 13:47 ICD10 Worksheet Patient Problems: Problems Problem Status Onset Abdominal pain Acute
[2018-04-22] MEDS: ENOXAPARIN 40 MG/0.4 ML SYR SC SCH (10:37)
[2018-04-22] MEDS: COLCHICINE 0.6 MG CAP/TAB PO SCH ×2 (10:38→10:39)
[2018-04-22] MEDS: VITAMIN B COMPLEX 1 EA CAP/TAB PO SCH (10:38)
[2018-04-22] MEDS: OMEGA-3 FATTY ACIDS 1,000 MG CAP PO SCH (10:38)
[2018-04-22] MEDS: CHOLECALCIFEROL VIT D3 1,000 UNITS TAB PO SCH (10:38)
--- NOTE | 2018-04-22 10:43 | ASMTLACE ---
LACE Length of stay for Answers: 14 days or more current admission Acuity / Level of Answers: Yes Care: Did the patient have an inpatient admission? Comorbidities - select Answers: Opioid dependence all that apply / Chronic pain # of Emergency department Answers: 1-2 visits in the last 6 months Score: 15 Date Signed: 04/22/2018 10:42 AM Electronically Signed By:Chelly Hay RN
--- NOTE | 2018-04-22 10:45 | ASMTDCNOTE ---
Case Management Discharge Discharge Order Complete? Answers: Yes Patient to Obtain Answers: Independently Medications Transportation Arranged Answers: Family/Friends Faxed Final Orders Answers: Yes Family Notified Answers: Yes Discharge Comments Notes: Patient to d/c home with . [facility] RN and PT to follow. Alerted [facility] that no tube feeds needed. J tube to stay in place but not be used. RN will flush daily and teach patient. F/U w surgery as directed. Date Signed: 04/22/2018 10:44 AM Electronically Signed By:Chelly Hay RN
--- NOTE | 2018-04-23 14:50 | ASDISCHSUM ---
Discharge Information Plan Status:Home with Home Health Medically Cleared to Leave:04/21/2018 Discharge Date:04/22/2018 01:40 PM CM D/C Disposition: ADT D/C Disposition:[id number] Projected Discharge Date:04/22/2018 11:00 AM Transportation at D/C: Discharge Delay Reason: Follow-Up Date:04/22/2018 11:00 AM Discharge Slot: Final Diagnosis: Placement Information Referral Type:*Home Health Care Services Referral ID:[id number] Provider [facility] [address] Address 2: City:[place] Selection Factors: State:[place] Referral Type:Home Infusion Referral ID:[id number] Provider Name: Address 1: Phone Number: Address 2: Fax Number: City: Selection Factors: State: Patient Contact Information Contact Name:[place] Relationship: Address[address] Work Phone: City:[place] [facility] Phone: State/Zip Code:[place] [address] Email: Financial Information Financial Class:Medicare Primary Plan Desc:MEDICARE INPATIENT Primary Plan Number:[id number] Secondary Plan Desc:MIRIAM/DEBORAH SUPPLEMENT Secondary Plan Number:[id number] Assessment Information LACE LACE Length of stay for Answers: 14 days or more current admission Acuity / Level of Answers: Yes Care: Did the patient have an inpatient admission? Comorbidities - select Answers: Opioid dependence all that apply / Chronic pain # of Emergency department Answers: 1-2 visits in the last 6 months Score: 15 Date Signed: 04/22/2018 10:42 AM Electronically Signed By:Chelly Hay RN [facility] Initial CM Assessment Living Arrangements What is your living Answers: With Spouse arrangement? Who do you live with? Type Of Residence What kind of residence do Answers: House you live in? Discharge Plan Comments Coordination Status Comments Notes: Patient is a 68yo male who comes to [facility] for surgical intervention, specifically, laparotomy exploratory resection abdominal tumor and a possible gastrectomy. PT has been ordered for the patient. D/C plan TBD. CM will follow. Date Signed: 04/05/2018 12:51 PM Electronically Signed By:Tenisha Monterroso LCSW [facility] CM Progress Note CM Note CM Note Notes: 04/06/2018 Case Management Note Discussed pt during rounds this morning. Reviewed chart. NG tube is in place. Pt has cleared pt for return home without services. Pt has family support. Anticipating independent with follow up as directed. Case Management d/c poc: to be determined. Case Management to follow. Date Signed: 04/06/2018 03:15 PM Electronically Signed By:Alivia Cartagena RN [facility] CM Progress Note CM Note CM Note Notes: CM met w/ pt for dispo planning. PT is recommending HC. Pt is agreeable to HC services but reports that he does not have a PCP. Pt would like to revisit conversation when his is present. CM to follow. Date Signed: 04/09/2018 04:02 PM Electronically Signed By:SHYANN Kumar [facility] CM Progress Note CM Note CM Note Notes: CM spoke to pts alexia Adams on the phone. Angie would like an appointment with either Malachi Connelly or Damion Irving. CM was able to obtain an appointment w/ Malachi Connelly (see appointment below). Referral sent to [facility]. [facility] is able to accept. CM to follow. Plan: [facility]; RN Appointment for a new primary care doctor: Malachi Connelly MD [address] [facility], [facility] [address] [facility] P#: [phone] 04/15/18 at 10:40AM Bring photo ID, med list, discharge summary from the hospital, insurance card and copay Date Signed: 04/10/2018 02:00 PM Electronically Signed By:SHYANN Kumar [facility] LYDIA Progress Note CM Note CM Note Notes: Pts case discussed w/ CLARIBEL Jarrett and Marci Thrasher NP. CM rescheduled pts appointment w/ Dr. Connelly for 04/18 at 1PM. CM notified [facility] that pt will not be discharging today. CM to follow. Plan: [facility]; PT Date Signed: 04/12/2018 03:09 PM Electronically Signed By:SHYANN Kumar [facility] CM Progress Note CM Note CM Note Notes: Pt continues to progress medically. Pt recommending Homecare, [facility] following. Pt has PCP appt scheduled for at 1pm with Dr. Connelly. CM to follow. Plan: Home with BC and family supports. Date Signed: 04/15/2018 01:39 PM Electronically Signed By:SHYANN Nino [facility] CM Progress Note CM Note CM Note Notes: CM rescheduled pt's PCP appt with Dr. Connelly for 04/25/28 at 1:00pm. PT rec HC, OT rec Home. Pt is linked with [facility]. CM to follow. Plan: [facility] Homecare. Date Signed: 04/16/2018 02:32 PM Electronically Signed By:SHYANN Nino [facility] CM Progress Note CM Note CM Note Notes: CM discussed pts case w/ CLARIBEL Saez. Pt will most likely require tube feed at time of d/c. CM made a referral to [facility]. Brittanie from [facility] stopped by and did some teaching w/ pt. CM notified [facility] that pt will most likely be another 2-3 days until able to d/c. CM to follow. Plan: [facility]; CLARIBEL and [facility] Date Signed: 04/17/2018 03:17 PM Electronically Signed By:SHYANN Kumar [facility] CM Progress Note CM Note CM Note Notes: 04/19/2018 Case Management Note Met w/pt to discuss d/c needs. On site visit from Brittanie with [facility]. Angie can be reached at [phone] Planning for [facility] and [facility]. Pt primary care is Dr. Carrera with an appointment scheduled next week. Pt anticipating d/c on Sunday. Case Management d/c poc: [facility] + [facility] Case Management to follow. Date Signed: 04/19/2018 04:56 PM Electronically Signed By:Alivia Cartagena RN Case Management Discharge Plan Note Case Management Discharge Discharge Order Complete? Answers: Yes Patient to Obtain Answers: Independently Medications Transportation Arranged Answers: Family/Friends Faxed Final Orders Answers: Yes Family Notified Answers: Yes Discharge Comments Notes: Patient to d/c home with . [facility] RN and PT to follow. Alerted [facility] that no tube feeds needed. J tube to stay in place but not be used. RN will flush daily and teach patient. F/U w surgery as directed. Date Signed: 04/22/2018 10:44 AM Electronically Signed By:Chelly Hay RN Intervention Information Intervention Type:*IM-Signed Date of Service:04/22/2018 10:40 AM Patient Type:Inpatient Staff Member:Meka Mcdonald Hours: Discipline: Severity: Comment:
== END 2018-04-22 13:40 | disposition home health service (06) | DRG 516 ==
LOC: FSGY 13:37 → F3E 18:10 → F2N 18:16 → F3E 04-07 14:55 → F2N 04-12 23:40 → F2W 04-16 17:54
PROVIDERS: ADMIT Surgery; ATTEND Surgery
PROC: 0FB00ZX Excision of Liver, Open Approach, Diagnostic (ICD-10-PCS; principal; 2018-04-04 15:00)
PROC: 0DB60ZX Excision of Stomach, Open Approach, Diagnostic (ICD-10-PCS; principal; 2018-04-04 15:00)
PROC: 30233N1 Transfusion of Nonautologous Red Blood Cells into Peripheral Vein, Percutaneous Approach (ICD-10-PCS; 2018-04-05)
PROC: 0DT60ZZ Resection of Stomach, Open Approach (ICD-10-PCS; 2018-04-12)
PROC: 0D150ZA Bypass Esophagus to Jejunum, Open Approach (ICD-10-PCS; 2018-04-12)
PROC: 0D1A4Z4 Bypass Jejunum to Cutaneous, Percutaneous Endoscopic Approach (ICD-10-PCS; 2018-04-12)
PROC: 02HV33Z Insertion of Infusion Device into Superior Vena Cava, Percutaneous Approach (ICD-10-PCS; 2018-04-15)
DX: C49.A2 Gastrointestinal stromal tumor of stomach (principal); D62 Acute posthemorrhagic anemia; Z85.46 Personal history of malignant neoplasm of prostate; R74.0 Nonspecific elevation of levels of transaminase and lactic acid dehydrogenase [LDH]; R51 Headache; M10.9 Gout, unspecified; G47.33 Obstructive sleep apnea (adult) (pediatric)
CPT/HCPCS: 82435-PO; 82565-PO; 82947-PO; 84132-PO; 84295-PO; 84520-PO; 85014-ER; 97110-GO; 97110-GP; 97116-GP; 97161-GP; 97164-GP; 97165-GO; 97530-GO; 97530-GP; 97535-GO; A9503; C1751; J0171; J0694; J1100; J1170; J1450; J1650; J1885; J2060; J2250; J2270; J2370; J2405; J2543; J2704; J3010; P9016; P9041; Q9967